=== PATIENT | male | born 1955 | race Caucasian/White ===

== ENCOUNTER 2022-03-31 11:57 | Outpatient (CLI) | payer MEDICARE, OTHER, SELFPAY ==
[2022-03-31 12:42] VITALS: BMI 25.1
--- NOTE | 2022-03-31 12:42 | ECG_ITS ---
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 Interpretive Statements NAME OF STUDY: TREADMILL STRESS TEST INDICATION: [Dyspnea on Exertion] EXERCISE DATA: The patient was exercised by Dony protocol. Baseline heart rate was 98 beats per minute. Baseline blood pressure was 100/71 millimeters of mercury. Target heart rate was 129 beats per minute. Maximum heart rate achieved was 132 which was 102% of the target heart rate. Maximum blood pressure was 167/76 millimeters of mercury. Total exercise time was 9 minutes. Maximum METs achieved was 10.2, maximum VO2 was 35.7. The reason for ending the test was completion of the protocol and symptoms of chest tightness, back and arm pain. The patient complained of chest tightness, back and arm pain during the stress test, which then resolved at the end of the test. ELECTROCARDIOGRAM: BASELINE: Showed sinus rhythm, normal axis, no significant ST-T changes at the baseline noted. [] EXERCISE: At the peak exercise level, [address] depressions were noted in leads V2- V5. RECOVERY: During the recovery period, heart rate dropped appropriately. Initially ST depressions in leads V2 through 5 were noted which resolved by the end of recovery phase. CONCLUSION: 1. Exercise capacity good 2. Heart rate response was appropriate. 3. Blood pressure response was appropriate. 4. Symptoms suggestive of ischemia. 5. Stress test is abnormal and is suggestive of ischemia with significant ST depressions noted in leads anteroseptal and anterior leads. Electronically Signed On 04-02-2022 12:30:55 CDT by Musa Davis M.D. [email or web address]
[2022-03-31 13:45] VITALS: BP 98/61; PULSE 83
== END 2022-03-31 11:58 | disposition home or self-care (01) ==
LOC: CDL 12:04
PROVIDERS: PCP Family Medicine; Visit Provider Family Medicine
DX: R06.09 Other forms of dyspnea (principal)
CPT/HCPCS: 93017

== ENCOUNTER → 2022-04-02 12:03 | Outpatient (BNVA) | payer MEDICARE, OTHER, SELFPAY | PROVIDERS: PCP Family Medicine; Visit Provider Internal Medicine | DX: I20.0 Unstable angina (principal); E11.9 Type 2 diabetes mellitus without complications; E78.5 Hyperlipidemia, unspecified; I10 Essential (primary) hypertension; Z86.73 Personal history of transient ischemic attack (TIA), and cerebral infarction without residual deficits; Z87.891 Personal history of nicotine dependence; Z79.84 Long term (current) use of oral hypoglycemic drugs; I45.10 Unspecified right bundle-branch block | CPT/HCPCS: 93005; 99204 ==

== ENCOUNTER → 2022-04-06 13:03 | Outpatient (BNVA) | payer MEDICARE, SELFPAY | PROVIDERS: PCP Family Medicine; Visit Provider Internal Medicine | DX: I10 Essential (primary) hypertension (principal); R58 Hemorrhage, not elsewhere classified; Z01.818 Encounter for other preprocedural examination | CPT/HCPCS: 80048; 85025; 85610 ==

== ENCOUNTER 2022-04-08 10:34 | Inpatient (IN) | payer MEDICARE, OTHER, SELFPAY ==
[2022-04-08] VITALS (34 sets, daily range): BP systolic 100–154; BP diastolic 60–97; PULSE 69–97; RESP 9–32; TEMP 36.1–36.8; O2SAT 95–99; BMI 25.4
--- NOTE | 2022-04-08 09:00 | XACV_ITS ---
Exam Room: 2 Ht: 180 cm Wt: 83 kg BSA: 2.04 m2 Gender: Male : 1955 Any Known Allergies: Codeine Exam Priority: Routine Procedure(s): Procedure Description: Diagnostic procedure Procedure Description: Left Heart Catheterization Procedure Description: Left ventriculography Procedure Description: Coronary Angiography Diagnostic Cath Status: Elective Diagnostic Findings * Left Anterior Descending has mild luminal irregularities. Distal vessel has a moderate to severe stenosis. LAD gives rise to a large sized diagonal artery which is free of disease.. * Left Main: Severe, 60% hazy stenosis, HARSHA: 3 flow. Distal segment of the left main artery after the stenosis and ostial left circumflex artery have a large aneurysmal segment.. * Distal Right Coronary Artery : critical 95% stenosis, HARSHA: 2 flow. PLV branch appears to be ostially occluded. Has a very large PDA that is patent. 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 * After aneurysmal segment, proximal circumflex artery has severe 90% stenosis. Medium to large sized OM branch also has ostial stenosis. * P * roximal Circumflex: severe 90% stenosis, HARSHA: 2 flow. * INDICATION: 67-year-old man with past medical history of hypertension, hyperlipidemia who was referred secondary to worsening chest pain symptoms and abnormal stress test. According to patient for the last several months she has been having worsening chest discomfort which is to the point that he has stopped doing any physical activity. He has radiation to the arms. Also has radiation to back. Had an episode last night as well. He had exercise stress test on which she had significant ST depressions in anterior septal and anterior leads. * First Obtuse Marginal Branch Segment: severe 90% stenosis, HARSHA: 2 flow. * Coronary angiography shows right dominance. Conclusions 1. Severe multivessel CAD including 2. distal left main 3. , 4. distal RCA, proximal left circumflex artery and proximal OM1 stenosis. Also has moderate to severe distal LAD stenosis.. 5. Normal left ventricular systolic function. Ejection fraction of 55%. Recommendations * Patient will be transferred to outside hospital for possible CABG as has been having unstable anginal symptoms.. * Continue aspirin and atorvastatin. Hold Plavix. * Echocardiogram ordered. * Outpatient cardiology follow-up after CABG is performed. Interventional RX Recommendation: CABG Diagnostic RX Recommendation: CABG Anticoagulation: Heparin Ventriculography Ejection Fraction: 55.0 % Pressures Phase:Rest AO : 70 / 58 ( 64 ) @ 10:54:00 AM 103 / 62 ( 79 ) @ 11:06:00 AM 103 / 54 ( 78 ) @ 11:06:00 AM LV : 112 / -7 / 10 @ 11:04:00 AM 108 / -2 / 14 @ 11:06:00 AM 111 / -3 / 12 @ 11:06:00 AM Valves Phase:DefaultPhase AV : 8.0 @ 10:14:18 AM AV Mean Gradient: 14.0 @ 10:14:18 AM 14.0 @ 10:14:18 AM Clinical Evaluation EBL: 5mL-10mL Procedural Details Procedure Consent Obtained. Pre-Procedure Time Out. Identified patient by full name and date of as verbalized by the patient/guarantor. Does the consent match the physician's order: Yes. Accurate & Complete Informed Consent: Yes. Inpatient/Outpatient History & Physical on Chart: Yes. If H&P is completed, is and addenduem needed: No. Visualize and Verify Site with Patient/Guarantor: N/A. Relevant Radiology Images available: Yes. The risks, benefits, and alternatives of sedation and/or procedure were discussed by physician. The patient agrees to continue. Procedure started. [facility] Clinical Fraility Score: 3: Managing Well. Security Operations Analyst Indications: Worsening Angina/Abnormal exercise stress test. Chest Pain Symptom Assessment: Typical Angina Symptoms. Cardiovascular Instability: No. Correct patient, site and procedure confirmed by cath team. PERRLA. 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 Lungs clear x 5 lobes. IV Site on Arrival: 20 gauge in the right forearm. IV Fluids: 0.9% NaCl at KVO. 0 mL infused prior to qc lab technician. Pre Procedural Pulses: bilateral dorsalis pedis was 2+. Pre Procedural Pulses: bilateral posterior tibial was 2+. Pre Procedural Pulses: bilateral radial was 2+. Oxygen started at 2liters/min via nasal canula. right groin was prepped with chloroprep then draped in the usual sterile fashion. right radial was prepped with chloroprep then draped in the usual sterile fashion. Physician notified. Baseline sample Acquired. HR: 88 BPM. Patient's spouse in CPRU room 3. Dr. Davis will update at the completion of the procedure. Physician arrived. Physician scrubbed in. Immediate Pre-Procedure Time Out. Correct Patient: Yes; Correct Procedure: Yes; Correct Site: Yes; Correct Patient Position: Yes; Correct Supplies: Yes; Dried Flammable Prep: Yes; Blood Products Available: N/A;. Lidocaine 1% infiltrated to the right radial. Arterial access obtained. A 5 [place] TIG catheter in over wire. Multiple views taken of left coronary artery. Catheter redirected to the RCA. Multiple views taken of right coronary artery. Dr. Davis scrubbed out to consult Dr. Encarnacion via telephone. The catheter was hooked up to KVO to maintain patency. Dr. Davis scrubbed in. Catheter removed over the standard wire. A 5 [place] Angled Pig catheter in over wire. EDP Sample taken: LV 112/-8,10; HR: 83 BPM; SpO2: 97%. LV gram performed in MANDUJANO @ 10 mL/second for a total of 30 mL. EDP Sample taken: LV 108/-3,14; HR: 86 BPM; SpO2: 97%. Pullback taken: LV 111/-4,12; AO 103/62(79); Mean: 14mmHg, Peak to Peak: 8mmHg, SEP: 9sec/min; HR: 87 BPM; SpO2: 97%. Catheter removed over the standard wire. Dr. Davis scrubbed out. TR band placed. Hemostasis obtained. Post Procedure: Pulses reassessed and unchanged. PERRLA. 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 No VTE prophylaxis required. A TR Band was successful obtaining hemostatsis at the Right Radial artery insertion site. Medication's Wasted: Nitro = 49.8 mg. Medication's Wasted: Heparin = 1000 units. Total IV fluids: 275 mL. Post-op diagnosis: Multivessel CAD/CABG consult. Complications: none. Estimated blood loss: 5mL-10mL. Responsiveness - Normal response to verbal stimuli; alert and oriented, PERRLA. Airway - Unaffected, no intervention required; spontaneous ventilation. Circulation: W/N/L, pulses unchanged. Nausea/Vomiting: No. Procedure completed. Patient transferred by wheelchair to 1st floor. Vital chart was stopped. Access Site Site: Right Radial artery Sheath Size: 6 Fr Hemostasis Method: TR Band Hemostasis Success: Successful Procedure Medications Start: 9:43 AM Stop: 9:43 AM Medication: Versed Amount: 1 mg Route: I.V. Start: 9:43 AM Stop: 9:43 AM Medication: Fentanyl Amount: 25 mcg Route: I.V. Start: 9:48 AM Stop: 9:48 AM Medication: Versed Amount: 1 mg Route: I.V. Start: 9:50 AM Stop: 9:50 AM Medication: Nitrogylcerin Amount: 200 mcg Route: I.A. Start: 9:50 AM Stop: 9:50 AM Medication: Fentanyl Amount: 25 mcg Route: I.V. Start: 9:53 AM Stop: 9:53 AM Medication: Heparin Amount: 5000 units Route: I.V. Start: 9:54 AM Stop: 9:54 AM Medication: 0.9% Saline Amount: ml Route: I.V. bolus Start: 10:02 AM Stop: 10:02 AM Medication: Fentanyl Amount: 25 mcg Route: I.V. I, the attending physician, have reviewed and verified all procedure medications. Yes, all medications given per verbal order History/Risk Factors Hypertension: Yes Dyslipidemia: Yes Peripheral Arterial Disease (PAD): No Myocardial Infarction (CA): No Obesity: No Renal Disease: No Tobacco Use: Former Prior Interventions PCI: No CABG: No Valve Surgery: No Report Signatures Finalized by Musa Davis MD on 04/15/2022 09:04 AM
--- NOTE | 2022-04-08 10:27 | W.PM.OPSUD ---
Surgery/Procedure H&P Update DATE OF PROCEDURE: April 08, 2022 DATE H&P PERFORMED: 04/02/22 H&P UPDATE INFORMATION: I have reviewed H&P completed within last 30 days, I have examined patient prior to procedure and No changes to prior documentation PREOP DIAGNOSIS: Worsening angina/ abnormal stress test PRIMARY INDICATION FOR PROCEDURE: Worsening angina/abnormal stress test PLANNED PROCEDURE: Operation Date: 04/08/22 10:00 Proposed Procedures p Left Cardiac Catheterization 56614,I20.0(Left) - Musa Davis M.D Possible percutaneous coronary intervention PATIENT REASSESSED PRIOR TO SEDATION, WITH NO CHANGE NOTED: Yes PHYSICAL EXAM: alert, oriented x 3, clear to auscultation bilaterally and regular rate & rhythm AIRWAY EVAL/ANESTHESIA PLAN: normal airway, ASA III, Local Anesthesia, Risks, benefits & alternatives of sedation and/or procedure discussed and Patient agrees to continue as planned ADDITIONAL INFORMATION: Moderate sedation
[2022-04-08] MEDS: sodium chloride 0.9% 1,000 ML 100 ML IV ×2 (10:45→19:57)
--- NOTE | 2022-04-08 12:41 | P.TS_ITS ---
Transfer Summary Providers Date of Admission: 04/08/22 10:34 Date of Discharge/Transfer: 04/09/22 Attending Provider at Admission: Musa Davis M.D Attending Provider at Transfer: Musa Davis M.D Primary Care Provider: Javier Adams Transfer Plans: Anticipated date of transfer: 04/09/22 . Receiving Facility: [facility] . Receiving Provider: Dr Rosas . Diagnoses at Discharge Discharge Diagnosis (1) Hyperlipemia: Status: Acute (2) HTN (hypertension): Status: Acute (3) Diabetes: Status: Acute (4) Worsening angina: Status: Acute (5) Coronary artery disease: Status: Acute Reason for Visit Reason for Visit I20.0 Brief History: 67-year-old man with past medical history of hypertension, stroke hyperlipidemia has been referred secondary to worsening chest pain symptoms and abnormal stress test.? According to patient for the last several months she has been having worsening chest discomfort which is to the point that he has stopped doing any physical activity.? He has radiation to the arms.? Also has radiation to back.? Had an episode last night as well.? He had exercise stress test on which she had significant ST depressions in anterior septal and anterior leads.? Hospital Course Hospital Course Patient presented to the hospital for outpatient cardiac cath. Which showed severe multivessel coronary artery disease with severe distal left main, severe ostial left circumflex stenosis, severe distal RCA stenosis. Given multivessel disease plan was to perform coronary artery bypass surgery. He has been having worsening, daily chest pains. Now happening at rest. Symptoms are consistent with unstable angina. After discussion with patient, decision made to have hospital transferred to [facility] for CABG. Of note patient did take aspirin and Plavix on 04/08/2022. LV gram shows normal LV systolic function. Echo confirms normal LV systolic function. Grade 1 diastolic dysfunction is seen. Physical Exam Narrative: GENERAL: Patient is alert, awake and oriented x3. [] NECK: No jugular vein distension. [] HEENT: No cyanosis. No icterus. No pallor. [] HEART: Regular S1 and S2. No murmur, rub or gallop. [] LUNGS: Clear to auscultate bilaterally. [] ABDOMEN: Soft, nontender and nondistended. Positive bowel sounds. No guarding, rebound or tenderness. [] CENTRAL NERVOUS SYSTEM: Grossly nonfocal. [] EXTREMITIES: Lower extremities with no edema bilaterally. Pulses palpable in the lower extremities, both dorsalis pedis and posterior tibial. [] TS Data Studies Completed and Pending Pending at discharge Category Date Time Status AEMT request for service Routine Exams 04/08/22 09:00 Taken Basic Metabolic Panel AM LABS Lab 04/09/22 04:00 Ordered Complete Blood Count w/Auto AM LABS Lab 04/09/22 04:00 Ordered Recent Clincial Data Last Vital Signs Temp 98 F 04/08/22 10:23 Pulse 87 04/08/22 10:45 Resp 19 H 04/08/22 10:45 BP 113/75 04/08/22 10:45 Pulse Ox 96 04/08/22 10:45 O2 Del Method 04/08/22 10:30 Vital Signs Temp Pulse Resp BP Pulse Ox O2 Del Method 04/08/22 10:45 87 19 H 113/75 96 04/08/22 10:30 82 117/78 97 Room Air 04/08/22 10:23 98 F 116/73 97 Room Air 04/08/22 10:17 Room Air 04/08/22 09:15 98.3 F 89 18 154/97 99 Room Air 04/08/22 09:15 Room Air Intake & Output/Weight 04/06/22 04/07/22 04/08/22 04/09/22 06:59 06:59 06:59 06:59 Weight 182 lb Vitals Last Vital Signs Temp 98 F 04/08/22 10:23 Pulse 87 04/08/22 10:45 Resp 19 H 04/08/22 10:45 BP 113/75 04/08/22 10:45 Pulse Ox 96 04/08/22 10:45 O2 Del Method 04/08/22 10:30 TS Medications Medications Acetaminophen (Acetaminophen 325 Mg Tablet) 650 mg PO Q6H PRN PRN Reason: MILD PAIN Al Hydrox/Mg Hydrox/Simethicone (Yrxi-Srf-Ayskbkamq-Mario 30 Ml Udc) 30 ml PO Q15M PRN PRN Reason: INDIGESTION Aspirin (Aspirin 81 Mg Ec Tablet) 81 mg PO DAILY BETSY Atropine Sulfate (Atropine 1 Mg/Ml Sdv 1 Ml) 0.5 mg IVP PRN PRN PRN Reason: Symptomatic bradycardia Fentanyl (Fentanyl 50 Mcg/Ml Inj 2ml) 50 mcg IVP PRN PRN PRN Reason: Prior to sheath removal Sodium Chloride (Sodium Chloride 0.9%) 1,000 mls @ 100 mls/hr IV .Q10H BETSY Magnesium Hydroxide (Magnesium Hydroxide 30 Ml Udc) 30 ml PO DAILY PRN PRN Reason: CONSTIPATION Naloxone HCl (Naloxone 0.4 Mg/Ml Sdv) 0.1 mg IVP Q2M PRN PRN Reason: RESPIRATORY RATE < 8/MIN Nitroglycerin (Nitroglycerin 0.4 Mg Sublingual Tablet) 0.4 mg SUBLINGUAL Q5M PRN PRN Reason: CHEST PAIN Temazepam (Temazepam 15 Mg Capsule) 15 mg PO BEDTIME PRN PRN Reason: INSOMNIA Discontinued Medications Fentanyl (Fentanyl 50 Mcg/Ml Inj 2ml) Confirm Administered Dose 100 mcg .ROUTE .STK-MED ONE Stop: 04/08/22 09:24 Heparin Sodium (Porcine) (Heparin 5,000 Unit/Ml Inj 1 Ml) Confirm Administered Dose 5,000 unit .ROUTE .STK-MED ONE Stop: 04/08/22 09:23 Heparin Sodium (Porcine) (Heparin 5,000 Unit/Ml Inj 1 Ml) Confirm Administered Dose 5,000 unit .ROUTE .STK-MED ONE Stop: 04/08/22 09:24 Lidocaine HCl (Lidocaine 1%) Confirm Administered Dose 2 mls @ as directed .ROUTE .STK-MED ONE Stop: 04/08/22 09:24 Sodium Chloride (Sodium Chloride 0.9%) Confirm Administered Dose 1,000 mls @ as directed .ROUTE .STK-MED ONE Stop: 04/08/22 09:25 Midazolam HCl (Midazolam 1 Mg/Ml Inj 2 Ml) Confirm Administered Dose 2 mg .ROUTE .STK-MED ONE Stop: 04/08/22 09:24 Nitroglycerin (Nitroglycerin 5 Mg/Ml Sdv 10 Ml) Confirm Administered Dose 50 mg .ROUTE .STK-MED ONE Stop: 04/08/22 09:24 Allergies codeine Allergy (Verified 04/07/22 09:35) Unknown Home Medications nitroglycerin 0.4 mg sublingual tablet 0.4 mg sublingual Q5M PRN chest pain #20 tabs 04/01/22 [Rx Confirmed 04/07/22] ascorbic acid (vitamin C) 1,000 mg tablet 1 g PO DAILY 04/02/22 [History Confirmed 04/07/22] aspirin 81 mg tablet,delayed release (Adult Low Dose Aspirin) 81 mg PO DAILY #90 tabs 04/02/22 [Rx Confirmed 04/08/22] cholecalciferol (vitamin D3) 25 mcg (1,000 unit) capsule 25 mcg PO DAILY 04/02/22 [History Confirmed 04/07/22] clobetasol 0.05 % topical cream 1 applic topical DAILY 04/02/22 [History Confirmed 04/07/22] clopidogrel 75 mg tablet (Plavix) 75 mg PO DAILY 04/02/22 [History Confirmed 04/08/22] coenzyme Q10 200 mg capsule 200 mg PO DAILY 04/02/22 [History Confirmed 04/07/22] fluticasone propionate 50 mcg/actuation nasal spray,suspension 2 spray intranasal DAILY 04/02/22 [History Confirmed 04/07/22] hydrocortisone 1 % topical cream 1 applic topical BID PRN Rash 04/02/22 [History Confirmed 04/07/22] lactobacillus combination no.9 4 billion cell capsule (Adult 50 Plus Probiotic) 4,000 mmu cells PO DAILY 04/02/22 [History Confirmed 04/07/22] lisinopril 10 mg tablet 10 mg PO DAILY 04/02/22 [History Confirmed 04/08/22] loratadine 10 mg tablet (Claritin) 10 mg PO DAILY 04/02/22 [History Confirmed 04/07/22] metformin 1,000 mg tablet 1,000 mg PO BID 04/02/22 [History Confirmed 04/08/22] pravastatin 80 mg tablet 80 mg PO DAILY 04/02/22 [History Confirmed 04/08/22] zinc gluconate 50 mg tablet 50 mg PO DAILY 04/02/22 [History Confirmed 04/07/22] Discharge Plan Discharge Patient Disposition: Xfer Other Prescriptions: Discontinued clopidogrel [Plavix] 75 mg tablet 75 mg PO DAILY No Action metformin 1,000 mg tablet 1,000 mg PO BID lisinopril 10 mg tablet 10 mg PO DAILY pravastatin 80 mg tablet 80 mg PO DAILY fluticasone propionate 50 mcg/actuation spray,suspension 2 spray intranasal DAILY Rx Instructions: administer into each nostril loratadine [Claritin] 10 mg tablet 10 mg PO DAILY zinc gluconate 50 mg tablet 50 mg PO DAILY Adult 50 Plus Probiotic 4 billion cell capsule 4,000 mmu cells PO DAILY Rx Instructions: administer with a meal ascorbic acid (vitamin C) 1,000 mg tablet 1 g PO DAILY cholecalciferol (vitamin D3) 25 mcg (1,000 unit) capsule 25 mcg PO DAILY coenzyme Q10 200 mg capsule 200 mg PO DAILY clobetasol 0.05 % cream 1 applic topical DAILY hydrocortisone 1 % cream 1 applic topical BID PRN (Reason: Rash) aspirin [Adult Low Dose Aspirin] 81 mg tablet,delayed release (DR/EC) 81 mg PO DAILY Qty: 90 3RF nitroglycerin 0.4 mg tablet, sublingual 0.4 mg sublingual Q5M PRN (Reason: chest pain) Qty: 20 3RF Rx Instructions: do not exceed 3 doses per episode Discharge Orders: Discharge Order (Routine); Ordered 04/09/22 Ordered By: Musa Davis Transfer Attestations Time Spent in Transfer Care: greater than 30 min Quality Metrics Clinical Quality Measures [ No reported AMI, CVA or VTE this stay] Coding Level of Care Code 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
--- NOTE | 2022-04-08 12:42 | USCV_ITS ---
Tobi Webb Age: 67 Gender: M : 1955 Exam Date: 04/08/2022 13:51 Ordering Phys: Musa Davis M.D ([email or web address]) Technologist: OLLIE Exam Location: [facility] [place] Indication: CHEST PAIN BP: 112 / 81 HR: 90 Rhythm: Sinus Technical Quality: Adequate MEASUREMENTS (Male / Female) Normal Values 2D ECHO LV Diastolic Diameter PLAX 4.4 cm 4.2 - 5.9 / 3.9 - 5.3 cm LV Systolic Diameter PLAX 3.0 cm IVS Diastolic Thickness 1.4 cm 0.6 - 1.0 / 0.6 - 0.9 cm IVS Systolic Thickness 1.7 cm LVPW Diastolic Thickness 1.7 cm 0.6 - 1.0 / 0.6 - 0.9 cm LVPW Systolic Thickness 1.7 cm LVOT Diameter 2.0 cm LV Ejection Fraction 2D Teich 61.2 % LV Ejection Fraction MOD 2C 65.9 % LV Ejection Fraction 2C AL 67.6 % LA Diameter 3.1 cm LA Width 3.3 cm LA Height 5.4 cm RA Width 4.0 cm RA Height 4.9 cm Aorta at Sinotubular Diameter 2.9 cm IVC Diameter 1.2 cm M-MODE Aortic Annulus Diameter 3.5 cm LA Ao Ratio MM 0.8 MV E Point Septal Separation 0.4 cm DOPPLER AV Peak Velocity 155.7 cm/s LVOT Peak Velocity 80.0 cm/s AV Area Cont Eq vti 1.9 cm squared AV Area Cont Eq pk 1.6 cm squared MV Peak Velocity 95.0 cm/s MV Area PHT 3.7 cm squared Mitral E to A Ratio 0.7 MV E' Velocity 36.0 cm/s Mitral E to MV E' Ratio 5.6 Mitral E to LV E' Lateral Ratio 4.4 Mitral E to LV E' Septal Ratio 7.7 TR Peak Velocity 146.3 cm/s TR Peak Gradient 8.6 mmHg TR Mean Velocity 111.6 cm/s TR Mean Gradient 5.6 mmHg TR Velocity Time Integral 36.3 cm TV Peak E Velocity 43.0 cm/s Right Atrial Pressure 3.0 mmHg Pulmonary Artery Systolic Pressu 11.6 mmHg FINDINGS Left Ventricle Left ventricle is normal in size. LV systolic function is normal with a EF of 55 to 60%. No regional wall motion abnormalities are seen. Grade 1 diastolic dysfunction is noted. Right Ventricle Normal in size and function Right Atrium Normal in size Left Atrium Normal in size Mitral Valve Structurally normal mitral valve. Mild mitral regurgitation is seen Aortic Valve Grossly normal. No significant stenosis or regurgitation Tricuspid Valve Mild tricuspid regurgitation. Insufficient TR jet to calculate RVSP. Pulmonic Valve Not well-visualized Pericardium Normal Aorta Normal in size IVC CONCLUSIONS LV systolic function is normal with EF of 55 to 60%. Grade 1 diastolic dysfunction is noted. Mild mitral regurgitation is seen. Mild tricuspid regurgitation noted. Musa Davis MD (Electronically Signed) Final Date: 09 April 2022 13:18 S
[2022-04-08 16:30] LABS: SARS Covid-2 Antigen Negative (Negative)
--- NOTE | 2022-04-08 18:38 | PC.NURSE ---
Patient arrived via wheelchair with at bedside. Patient and oriented to room. VS stable. Patient educated regarding activity restriction.
[2022-04-09] VITALS (8 sets, daily range): BP systolic 108–136; BP diastolic 68–82; PULSE 77–96; RESP 15–19; TEMP 36.6–36.7; O2SAT 92–97
[2022-04-09 03:11] LABS: Basophils # 0.1 10^3/uL (0.0-0.1); Basophils % 1.3 %; Eosinophils # 0.3 10^3/uL (0.0-0.8); Eosinophils % 5.2 %; Hematocrit 41.1 % (42.0-52.0); Hemoglobin 13.5 g/dL (11.7-16.6); Lymphocytes # 2.1 10^3/uL (0.8-4.8); Lymphocytes % 37.9 %; Mean Corpuscular HGB Conc 32.8 g/dL (30.0-36.0); Mean Corpuscular Hemoglobin 31.6 pg (28.0-34.0); Mean Corpuscular Volume 96.3 fl (80-94); Mean Platelet Volume 9.3 fL (7.4-10.4); Monocytes # 0.6 10^3/uL (0.2-0.9); Neutrophils # 2.54 10^3/uL (1.8-7.7); Neutrophils % 45.4 %; Nucleated Red Blood Cells % 0 %; Platelet Count 290 10^3/cmm (130-400); Red Blood Count 4.27 10^6/uL (4.1-5.3); Red Cell Distribution Width 12.2 % (12.1-15.1); White Blood Count 5.6 10^3/uL (4.0-10.0)
[2022-04-09 03:48] LABS: Anion Gap 10.6 (5-19); Blood Urea Nitrogen 14 mg/dL (8-23); Carbon Dioxide 29 mmol/L (22-29); Chloride 106 mmol/L (98-107); Glomerular Filtration Rate 96.1 mL/min (90-130); Glucose 128 mg/dL (65-115); Osmolality Calculated 294 mOsm/kg (285-295); Potassium 4.6 mmol/L (3.5-5.1); Sodium 141 mmol/L (136-145)
[2022-04-09] MEDS: sodium chloride 0.9% 1,000 ML 100 ML IV (05:02)
[2022-04-09] MEDS: aspirin 81 mg EC Tablet PO (08:51)
--- NOTE | 2022-04-09 09:32 | PC.NURSE ---
patient reports excessive belching with pressure in upper abdomen lower chest and left back patient states its one for the episodes that i have been having that brought me to the doctor provider notified instructions to give nitro if blood pressure tolerates continue protocol until pain is relieved if dose not help contact for further instructions. upon entering room with nitro and explaining providers plans patient denies the need for nitro. patient denies any intervention at this time Stating its all ready starting to feel better i just need to belch a for a few more mins i will be fine if it get worse or i need you i will call V/s stable bp 119/85 HR 99-100 NSR
--- NOTE | 2022-04-09 10:38 | PC.CHAP ---
Pastoral Care Encounter/Spiritual Assessment Type of Contact [] Declined shingle carrier visit [] Patient/Family/Request visit [] Outpatient visit [] Follow-up visit [] Physician referral [] Code/Alert [x] Routine visit [] Staff referral [] Actively dying [] Patient sleeping [] Family support [] [] Out of room [] Palliative care [] [x] Receiving care in room [] Pre-surgical visit [] Trauma [] Long length of stay [] ICU visit [] Other: Relational/Emotional Strength [x] Patient feels connected with others/family/visitors/staff [] Distress [] Loneliness/isolation [] Abandonment Spirituality of Patient [x] Person of Shayy [] Attends Yazidi of their Shayy [x] Believes in Prayer [] Reads Bible or Congregation materials [] There are Spiritual issues to be addressed Rn Diabetes Interventions [x] Prayer [x] Active listening [x] Non-anxious presence [x] Spiritual/emotional support [] Crisis/trauma care [x] Spiritual counseling [] Bereavement support [] Provided bereavement packet [] Provided Bible/devotional materials [] Provided toy/stuffed animal, coloring book to patient or family member [] Provided Communion [] Anointing/[place] [] Salvation [x] Completed spiritual assessment [] Other: Impact on Illness or Injury [] Angry [] Fearful [x] Anxious [] Often cries [] Exhaustion [] Unable to work [] Unable to attend islam [] Unable to walk/stand [] Unable to read [] Unable to drive [] Unable to eat/drink [] Unable to sleep [] Unable to be with family [] Patient intubated [] Other: Summary he is waiting surgery at [facility] has agood attitude he will need some recovery after surgery Time spent with patient 10 mins
--- NOTE | 2022-04-09 13:36 | P.PN_ITS ---
Subjective Subjective: Patient is doing well. Denies any chest pain. Had some heartburn earlier this morning. Resolved for now. Awaiting bed placement at [place]. Vitals/I&O/Wt Last Vital Signs Temp 98.1 F 04/09/22 10:59 Pulse 84 04/09/22 10:59 Resp 16 04/09/22 10:59 BP 136/80 04/09/22 10:59 Pulse Ox 95 04/09/22 10:59 O2 Del Method 04/09/22 10:59 04/08/22 04/09/22 04/09/22 22:59 06:59 14:59 Intake Total 1280 / 1280 908.333 / 2188.333 360 / 360 Balance 1280 / 1280 908.333 / 2188.333 360 / 360 Weight last 48 hrs Weight 182 lb Physical Exam Narrative: GENERAL: Patient is alert, awake and oriented x3. [] NECK: No jugular vein distension. [] HEENT: No cyanosis. No icterus. No pallor. [] HEART: Regular S1 and S2. No murmur, rub or gallop. [] LUNGS: Clear to auscultate bilaterally. [] ABDOMEN: Soft, nontender and nondistended. Positive bowel sounds. No guarding, rebound or tenderness. [] CENTRAL NERVOUS SYSTEM: Grossly nonfocal. [] EXTREMITIES: Lower extremities with no edema bilaterally. Pulses palpable in the lower extremities, both dorsalis pedis and posterior tibial. [] Data : 04/09/22 02:59 04/09/22 02:59 A&P Assessment and plan (1) Hyperlipemia: Status: Acute (2) HTN (hypertension): Status: Acute (3) Diabetes: Status: Acute (4) Worsening angina: Status: Acute Plan Patient is awaiting transfer to [facility] for CABG pending bed availability. Was found to have severe multivessel coronary artery disease including distal left main, RCA and circumflex artery stenosis. Continue aspirin. We are holding Plavix. Continue Coreg and atorvastatin. Nitro as needed. Echocardiogram shows normal LV systolic function. Telemetry monitoring. Attestations Medical Necessity Statement*: Care expected to cross 2 midnights. Patient presented for outpatient cardiac cath however symptoms are concerning for uns table angina. Has multivessel disease. Is awaiting transfer to [facility] for CABG. 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
--- NOTE | 2022-04-09 14:04 | PC.NURSE ---
spoke with provider with patient concerns of having small hard bowels wanting something to help with that instructions to give mirlax daily
[2022-04-09] MEDS: polyethylene glycol 3350 Pkt 17 gm PO (14:36)
[2022-04-09] MEDS: carvedilol 3.125 mg Tablet PO (18:26)
--- NOTE | 2022-04-09 19:24 | PC.NURSE ---
report called to [facility] patient prepared for transfer
--- NOTE | 2022-04-09 19:59 | PC.NURSE ---
EMS [facility] present to transfer patient to [facility] for higher level of care. Patient given explanation of transfer cost, Alert and oriented, no distress noted, ambulates without difficulty. All personal items taken with patient.
== END 2022-04-09 19:59 | disposition short-term general hospital (02) | DRG 287 ==
LOC: CCL 10:54 → CSU 10:54 → MEDSURG 18:13
PROVIDERS: Admitting Provider Internal Medicine; PCP Family Medicine; Visit Provider Internal Medicine
PROC: B2111ZZ Fluoroscopy of Multiple Coronary Arteries using Low Osmolar Contrast (ICD-10-PCS; principal; 2022-04-08 10:00)
DX: I25.110 Atherosclerotic heart disease of native coronary artery with unstable angina pectoris (principal); E78.5 Hyperlipidemia, unspecified; I10 Essential (primary) hypertension; E11.9 Type 2 diabetes mellitus without complications; Z79.82 Long term (current) use of aspirin; Z79.02 Long term (current) use of antithrombotics/antiplatelets; Z79.84 Long term (current) use of oral hypoglycemic drugs; Z86.73 Personal history of transient ischemic attack (TIA), and cerebral infarction without residual deficits; Z87.891 Personal history of nicotine dependence
CPT/HCPCS: 36415; 80048; 85025; 85610; 87426; 93306; 93452; 93458; 96360; 99152; 99153; C1769; C1887; C1894; G0378; J1644; J2250; J3010; J3490; J7030; Q9967

== ENCOUNTER → 2022-05-20 14:41 | Outpatient (BNVA) | payer MEDICARE, OTHER, SELFPAY | PROVIDERS: PCP Family Medicine; Visit Provider Internal Medicine | DX: I25.10 Atherosclerotic heart disease of native coronary artery without angina pectoris (principal); Z86.73 Personal history of transient ischemic attack (TIA), and cerebral infarction without residual deficits; E78.5 Hyperlipidemia, unspecified; I10 Essential (primary) hypertension; E11.9 Type 2 diabetes mellitus without complications; Z79.84 Long term (current) use of oral hypoglycemic drugs; Z87.891 Personal history of nicotine dependence; Z95.1 Presence of aortocoronary bypass graft | CPT/HCPCS: 99214 ==

== ENCOUNTER 2022-10-23 12:46 | Outpatient (CLI) | payer MEDICARE, OTHER, SELFPAY ==
--- NOTE | 2022-10-23 13:00 | USCV_ITS ---
Tobi Webb Age: 67 Gender: M : 1955 Exam Date: 10/23/2022 13:38 Ordering Phys: Musa Davis M.D ([email or web address]) Technologist: OLLIE Exam Location: [facility] Indication: CHEST PAIN, SHORTNESS OF BREATH BP: 152 / 80 HR: 79 Rhythm: Sinus Technical Quality: Adequate MEASUREMENTS (Male / Female) Normal Values 2D ECHO LVOT Diameter 2.0 cm LV Ejection Fraction MOD 2C 49.1 % LV Ejection Fraction 2C AL 49.4 % LA Diameter 3.0 cm LA Width 3.4 cm LA Height 5.2 cm RA Width 3.5 cm RA Height 4.9 cm Aorta at Sinotubular Diameter 2.5 cm IVC Diameter 1.7 cm M-MODE Aortic Annulus Diameter 3.1 cm LA Ao Ratio MM 0.8 MV E Point Septal Separation 0.6 cm DOPPLER AV Peak Velocity 131.3 cm/s LVOT Peak Velocity 79.0 cm/s AV Area Cont Eq vti 1.8 cm squared AV Area Cont Eq pk 1.9 cm squared MV Peak Velocity 78.0 cm/s MV Area PHT 3.7 cm squared Mitral E to A Ratio 0.6 MV E' Velocity 30.0 cm/s Mitral E to MV E' Ratio 5.6 Mitral E to LV E' Lateral Ratio 4.8 Mitral E to LV E' Septal Ratio 6.7 TR Peak Velocity 161.6 cm/s TR Peak Gradient 10.4 mmHg TR Mean Velocity 119.1 cm/s TR Mean Gradient 6.1 mmHg TR Velocity Time Integral 38.2 cm TV Peak E Velocity 49.0 cm/s Right Atrial Pressure 3.0 mmHg Pulmonary Artery Systolic Pressu 13.4 mmHg PV Peak Velocity 90.0 cm/s RV Acceleration Time 0.1 s RV Ejection Time 0.3 s RV AcT/ET 0.5 FINDINGS Left Ventricle Left ventricle is normal in size. LV systolic function is normal with EF of 50 to 55%. No regional wall motion abnormalities are seen. Grade 1 diastolic dysfunction. Right Ventricle Normal in size and function Right Atrium Normal in size. Interatrial septum is aneurysmal. Left Atrium Normal in size Mitral Valve Structurally normal mitral valve. Trace mitral regurgitation. Aortic Valve Aortic valve is thickened. No significant stenosis or regurgitation. Tricuspid Valve Mild tricuspid regurgitation. Pulmonary artery systolic pressure is normal. Pulmonic Valve Not well-visualized. Trace pulmonic regurgitation. Pericardium Normal Aorta Normal in size IVC Appears to be normal CONCLUSIONS LV systolic function is normal with EF of 50 to 55% Grade 1 diastolic dysfunction Interatrial septum is aneurysmal Trace mitral regurgitation Mild tricuspid regurgitation Trace pulmonic regurgitation Compared to prior echocardiogram from 2021, no significant changes are seen Musa Davis MD (Electronically Signed) Final Date: 31 October 2022 19:49 S
== END 2022-10-23 12:47 | disposition home or self-care (01) ==
LOC: RAD 12:49
PROVIDERS: PCP Family Medicine; Visit Provider Internal Medicine
DX: R06.02 Shortness of breath (principal); R07.9 Chest pain, unspecified; I08.1 Rheumatic disorders of both mitral and tricuspid valves
CPT/HCPCS: 93306

== ENCOUNTER → 2022-11-19 15:06 | Outpatient (BNVA) | payer MEDICARE, OTHER, SELFPAY | PROVIDERS: PCP Family Medicine; Visit Provider Internal Medicine | DX: I25.10 Atherosclerotic heart disease of native coronary artery without angina pectoris (principal); E78.5 Hyperlipidemia, unspecified; I10 Essential (primary) hypertension; E11.9 Type 2 diabetes mellitus without complications; Z79.84 Long term (current) use of oral hypoglycemic drugs; Z86.73 Personal history of transient ischemic attack (TIA), and cerebral infarction without residual deficits; Z87.891 Personal history of nicotine dependence; Z79.82 Long term (current) use of aspirin | CPT/HCPCS: 99213 ==

== ENCOUNTER → 2023-03-15 10:41 | Outpatient (BNVA) | payer MEDICARE, OTHER, SELFPAY | PROVIDERS: PCP Family Medicine; Referring Provider Family Medicine; Visit Provider Anesthesiology Pain Medicine | DX: M51.16 Intervertebral disc disorders with radiculopathy, lumbar region (principal); M47.816 Spondylosis without myelopathy or radiculopathy, lumbar region; M79.605 Pain in left leg | CPT/HCPCS: 99204 ==

== ENCOUNTER → 2023-03-30 13:50 | Outpatient (BNVA) | payer MEDICARE, OTHER, SELFPAY | PROVIDERS: PCP Family Medicine; Visit Provider Anesthesiology Pain Medicine | DX: M54.16 Radiculopathy, lumbar region (principal) | CPT/HCPCS: 64483; 64484; J1100; J3490 ==

== ENCOUNTER → 2023-04-13 13:00 | Outpatient (BNVA) | payer MEDICARE, OTHER, SELFPAY | PROVIDERS: PCP Family Medicine; Visit Provider Anesthesiology Pain Medicine | DX: M54.16 Radiculopathy, lumbar region (principal) | CPT/HCPCS: 64483; 64484; J1100; J3490 ==

== ENCOUNTER → 2023-04-26 10:18 | Outpatient (BNVA) | payer MEDICARE, OTHER, SELFPAY | PROVIDERS: PCP Family Medicine; Visit Provider Anesthesiology Pain Medicine | DX: M51.16 Intervertebral disc disorders with radiculopathy, lumbar region; M47.816 Spondylosis without myelopathy or radiculopathy, lumbar region | CPT/HCPCS: 99214 ==

== ENCOUNTER → 2023-05-27 10:00 | Outpatient (BNVA) | payer MEDICARE, OTHER, SELFPAY | PROVIDERS: PCP Family Medicine; Visit Provider Anesthesiology Pain Medicine | DX: M51.16 Intervertebral disc disorders with radiculopathy, lumbar region; M47.816 Spondylosis without myelopathy or radiculopathy, lumbar region | CPT/HCPCS: 99213 ==

== ENCOUNTER → 2023-06-07 15:16 | Outpatient (BNVA) | payer MEDICARE, OTHER, SELFPAY | PROVIDERS: PCP Family Medicine; Visit Provider Internal Medicine | DX: I25.10 Atherosclerotic heart disease of native coronary artery without angina pectoris (principal); E78.5 Hyperlipidemia, unspecified; I10 Essential (primary) hypertension; E11.9 Type 2 diabetes mellitus without complications; Z79.84 Long term (current) use of oral hypoglycemic drugs; Z78.9 Other specified health status; Z86.73 Personal history of transient ischemic attack (TIA), and cerebral infarction without residual deficits; Z87.891 Personal history of nicotine dependence | CPT/HCPCS: 99214 ==

== ENCOUNTER → 2023-08-16 10:51 | Outpatient (BNVA) | payer MEDICARE, OTHER, SELFPAY | PROVIDERS: PCP Family Medicine; Visit Provider Nurse Practitioner Family | DX: E78.5 Hyperlipidemia, unspecified (principal) | CPT/HCPCS: 99213 ==

== ENCOUNTER → 2023-12-09 10:16 | Outpatient (BNVA) | payer MEDICARE, OTHER, SELFPAY | PROVIDERS: PCP Family Medicine; Visit Provider Anesthesiology Pain Medicine | DX: M51.16 Intervertebral disc disorders with radiculopathy, lumbar region; M47.816 Spondylosis without myelopathy or radiculopathy, lumbar region | CPT/HCPCS: 99214 ==

== ENCOUNTER → 2023-12-10 11:16 | Outpatient (BNVA) | payer MEDICARE, OTHER, SELFPAY | PROVIDERS: PCP Family Medicine; Visit Provider Internal Medicine | DX: I25.10 Atherosclerotic heart disease of native coronary artery without angina pectoris (principal); E78.5 Hyperlipidemia, unspecified; I10 Essential (primary) hypertension; E11.9 Type 2 diabetes mellitus without complications; Z78.9 Other specified health status; Z86.73 Personal history of transient ischemic attack (TIA), and cerebral infarction without residual deficits; Z87.891 Personal history of nicotine dependence; Z79.84 Long term (current) use of oral hypoglycemic drugs | CPT/HCPCS: 99214 ==

== ENCOUNTER → 2024-04-27 15:20 | Outpatient (BNVA) | payer MEDICARE, SELFPAY | PROVIDERS: PCP Family Medicine; Visit Provider Internal Medicine | DX: R07.9 Chest pain, unspecified (principal); R06.02 Shortness of breath; I25.10 Atherosclerotic heart disease of native coronary artery without angina pectoris; E78.5 Hyperlipidemia, unspecified; I10 Essential (primary) hypertension; E11.9 Type 2 diabetes mellitus without complications; Z78.9 Other specified health status; Z86.73 Personal history of transient ischemic attack (TIA), and cerebral infarction without residual deficits | CPT/HCPCS: 99214 ==

== ENCOUNTER 2024-05-07 19:39 | Emergency (ER) | payer MEDICARE, SELFPAY ==
--- NOTE | 2024-05-07 19:46 | ECG_ITS ---
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 Measurements Intervals [place] Rate: 77 P: 39 FL: 167 QRS: 7 QRSD: 99 T: 32 QT: 361 QTc: 409 Interpretive Statements SINUS RHYTHM LOW QRS VOLTAGE IN PRECORDIAL LEADS [QRS DEFLECTION < 1.0 mV IN CHEST LEADS] POSSIBLE RIGHT VENTRICULAR CONDUCTION DELAY [RSR (QR) IN V1/V2] No previous ECG available for comparison Electronically Signed On 05-08-2024 11:17:19 CDT by Musa Davis M.D. [email or web address] centerChina [facility]aceutical[facility]etro[facility].[employer]/store/Ov/[id number]
[2024-05-07 19:49] VITALS: BP 153/81; PULSE 78; RESP 16; O2SAT 97; BMI 25.7
--- NOTE | 2024-05-07 20:05 | XRR_ITS ---
PROCEDURE INFORMATION: Exam: XR Chest Exam date and time: 05/07/2024 8:12 PM Age: 69 years old Clinical indication: Chest pressure; Prior surgery; Surgery date: 6+ months; Surgery type: Cabg; Patient HX: C/O chest pain TECHNIQUE: Imaging protocol: Radiologic exam of the chest. Views: 1 view. COMPARISON: No relevant prior studies available. FINDINGS: Lungs: Low lung volumes with bibasilar hypoventilatory changes, [id number]-hahhonk-cgbi-right. No consolidative airspace disease. Right basilar calcified granuloma. Pleural spaces: Unremarkable. No pleural effusion. No pneumothorax. Heart/Mediastinum: Unremarkable. No cardiomegaly. Vasculature: Tortuous thoracic aorta with atherosclerotic calcifications. Bones/joints: Post median sternotomy and CABG. XR/XR chest 1V portable [id number] IMPRESSION: No acute cardiopulmonary findings.
[2024-05-07 20:23] VITALS: BP 107/66; PULSE 104; RESP 16; O2SAT 94
[2024-05-07 20:26] LABS: Basophils # 0.1 10^3/uL (0.0-0.1); Basophils % 1.7 %; Eosinophils # 0.5 10^3/uL (0.0-0.8); Eosinophils % 8.1 %; Hematocrit 47.1 % (37-53); Lymphocytes # 2.2 10^3/uL (0.8-4.8); Lymphocytes % 33.7 %; Mean Corpuscular HGB Conc 32.7 g/dL (30-55); Mean Corpuscular Hemoglobin 30.6 pg (27-33); Mean Corpuscular Volume 93.6 fl (82-101); Mean Platelet Volume 9.3 fL (7.4-10.4); Monocytes # 0.6 10^3/uL (0.2-0.9); Monocytes % 9.6 %; Neutrophils # 2.99 10^3/uL (1.8-7.7); Neutrophils % 46.4 %; Nucleated Red Blood Cells % 0 %; Platelet Count 317 10^3/cmm (157-399); Red Blood Count 5.03 10^6/uL (3.85-5.65); Red Cell Distribution Width 12.6 % (12.1-15.1); White Blood Count 6.44 10^3/uL (3.29-11.43)
--- NOTE | 2024-05-07 20:26 | W.ED.CHESTPA ---
HPI - Chest Pain General: Chief Complaint: Chest Pain Stated Complaint: cp radiating up nitro. Time Seen by Provider: 05/07/24 20:05 History of Present Illness: 69-year-old man with a history of coronary artery disease status post CABG and on Plavix, diabetes, hypertension, stroke and hyperlipidemia who presents to the emergency room with central chest pain. He says he was lifting some 15 pound blocks out of his truck in the trash can. When he did this he had a sharp pain in the sternal area that radiated all the way up his chest and into his neck. He took a nitroglycerin which did not help. He now has some tenderness to palpation in the chest wall in his sternal area. 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 Otherwise he is been fine. No shortness of breath. No nausea or vomiting. No abdominal pain. No diaphoresis. No altered mental status. No focal motor deficits. Related Data Home Medications Medication Instructions Recorded Confirmed clobetasol 0.05 % topical cream 1 applic topical DAILY 04/02/22 04/27/24 clopidogrel 75 mg tablet (Plavix) 75 mg PO DAILY 04/02/22 04/27/24 fluticasone propionate 50 2 spray intranasal DAILY 04/02/22 04/27/24 mcg/actuation nasal spray,suspension loratadine 10 mg tablet (Claritin) 10 mg PO DAILY 04/02/22 04/27/24 metformin 1,000 mg tablet 1,000 mg PO BID 04/02/22 04/27/24 acetaminophen 500 mg capsule 500 mg PO Q6H PRN 05/20/22 04/27/24 tamsulosin 0.4 mg capsule (Flomax) 0.4 mg PO DAILY 05/20/22 04/27/24 albuterol 90 mcg/actuation aerosol mcg inhalation 11/19/22 04/27/24 inhaler gabapentin 100 mg capsule 200 mg PO BEDTIME 11/19/22 04/27/24 Previous Rx's Medication Instructions Recorded aspirin 81 mg tablet,delayed 81 mg PO DAILY #90 tabs 04/02/22 release (Adult Low Dose Aspirin) metoprolol tartrate 25 mg tablet 37.5 mg (1.5 x 25 mg) PO BID #135 07/01/22 tabs topiramate 50 mg tablet See Rx Instructions .Route 11/18/23 .COMPLEX #60 tabs evolocumab 140 mg/mL subcutaneous See Rx Instructions .Route 01/21/24 pen injector (Itzel Stringer) .COMPLEX #2 mL nitroglycerin 0.4 mg sublingual 0.4 mg sublingual Q5M PRN chest 04/27/24 tablet pain #30 tabs Allergies Allergy/AdvReac Type Severity Reaction Status Date / Time bacitracin Allergy Unknown Unknown Verified 12/10/23 11:28 [From Neosporin Plus] lidocaine Allergy Unknown Unknown Verified 12/10/23 11:28 [From Neosporin Plus] neomycin Allergy Unknown Unknown Verified 12/10/23 11:28 [From Neosporin Plus] polymyxin B Allergy Unknown Unknown Verified 12/10/23 11:28 [From Neosporin Plus] pramoxine Allergy Unknown Unknown Verified 12/10/23 11:28 [From Neosporin Plus] codeine Allergy Unknown Verified 12/10/23 11:28 atorvastatin AdvReac Severe ADR-Muscle Uncoded 12/10/23 11:28 Pain pravastatin AdvReac Severe ADR-Muscle Uncoded 12/10/23 11:28 Pain Review of Systems Narrative: Constitutional symptoms: Negative except as documented in HPI. Skin symptoms: Negative except as documented in HPI. Eye symptoms: Negative except as documented in HPI. ENMT symptoms: Negative except as documented in HPI. Respiratory symptoms: Negative except as documented in HPI. Cardiovascular symptoms: Negative except as documented in HPI. Gastrointestinal symptoms: Negative except as documented in HPI. Genitourinary symptoms: Negative except as documented in HPI. Musculoskeletal symptoms: Negative except as documented in HPI. Neurologic symptoms: Negative except as documented in HPI. Psychiatric symptoms: Negative except as documented in HPI. Endocrine symptoms: Negative except as documented in HPI. PFSH ED PFSH: Medical History Diabetes HTN (hypertension) Hiatal hernia Stroke Hyperlipemia Family History Father Heart attack Social History Smoking and tobacco/nicotine status: former use of tobacco/nicotine Physical Exam Narrative: EXAM NARRATIVE: General: Alert, no acute distress. Skin: Warm, dry. Head: Normocephalic, atraumatic. Neck: Supple, trachea midline. Eye: Extraocular movements are intact. Ears, nose, mouth and throat: mucosa moist. Cardiovascular: Regular, Normal peripheral perfusion. Some tenderness to palpation/reproducible pain in the central sternal area Respiratory: Lungs are clear to auscultation, respirations are non-labored, breath sounds are equal, Symmetrical chest wall expansion. Gastrointestinal: Soft, Nontender, Non distended Musculoskeletal: Normal ROM, no deformity. Neurological: Alert and oriented, No focal neurological deficit observed. Psychiatric: Cooperative, appropriate mood & affect. Course Vital Signs: Vital signs: Vital Signs Pulse Rate 99 05/07/24 21:51 Respiratory Rate 18 05/07/24 21:23 Blood Pressure 101/62 05/07/24 21:51 Pulse Oximetry 99 05/07/24 21:51 Oxygen Delivery Me thod Room Air 05/07/24 19:49 MDM - Chest Pain Medical Decision Making Differential diagnosis for patient with chest pain includes but is not limited to and based on the above HPI, review of systems and physical exam: Pneumonia. unstable angina. angina. Acute coronary syndrome / IA. Pulmonary embolism. Costochondritis / musculoskeletal. Pleurisy. Pericarditis. Esophageal spasm. Pancreatis. Cholecystitis. Orders placed to evaluate differential diagnosis based on the above differential, HPI and physical exam EKG: Time 1945. Rate 77. Normal sinus rhythm, No ST-T changes, no ectopy, normal [place] & QRS intervals, This was reviewed and interpreted by myself the ER physician at 1945. No change from previous EKGs. Chest x-ray: Sternotomy wires in place. No acute process. No infiltrate. No pneumothorax. This was reviewed and interpreted by myself the ER physician. Lab Review: Laboratory results were reviewed and interpreted by myself the emergency room physician. I reviewed the patient's medical record. Reexamination: Lab Data 05/07/24 20:20 05/07/24 20:20 Radiology Impressions Chest X-Ray 05/07/24 20:05 IMPRESSION: No acute cardiopulmonary findings. Laboratory Results WBC 6.44 10^3/uL (3.29-11.43) 05/07/24 20:20 RBC 5.03 10^6/uL (3.85-5.65) 05/07/24 20:20 Hgb 15.40 g/dL (11.27-16.99) 05/07/24 20:20 Hct 47.1 % (37-53) 05/07/24 20:20 MCV 93.6 fl (82-101) 05/07/24 20:20 MCH 30.6 pg (27-33) 05/07/24 20:20 MCHC 32.7 g/dL (30-55) 05/07/24 20:20 RDW 12.6 % (12.1-15.1) 05/07/24 20:20 Plt Count 317 10^3/cmm (157-399) 05/07/24 20:20 MPV 9.3 fL (7.4-10.4) 05/07/24 20:20 Neut % (Auto) 46.4 % 05/07/24 20:20 Lymph % (Auto) 33.7 % 05/07/24 20:20 [place] % (Auto) 9.6 % 05/07/24 20:20 Eos % (Auto) 8.1 % 05/07/24 20:20 Baso % (Auto) 1.7 % 05/07/24 20:20 Neut # (Auto) 2.99 10^3/uL (1.8-7.7) 05/07/24 20:20 Lymph # (Auto) 2.2 10^3/uL (0.8-4.8) 05/07/24 20:20 [place] # (Auto) 0.6 10^3/uL (0.2-0.9) 05/07/24 20:20 Eos # (Auto) 0.5 10^3/uL (0.0-0.8) 05/07/24 20:20 Baso # (Auto) 0.1 10^3/uL (0.0-0.1) 05/07/24 20:20 Nucleated RBC % (auto) 0 % 05/07/24 20:20 Nucleated RBCs # 0.0 /100WBC 05/07/24 20:20 Sodium 142 mmol/L (136-145) 05/07/24 20:20 Potassium 4.2 mmol/L (3.5-5.1) 05/07/24 20:20 Chloride 107 mmol/L (98-107) 05/07/24 20:20 Carbon Dioxide 27 mmol/L (22-29) 05/07/24 20:20 Anion Gap 12.2 (5-19) 05/07/24 20:20 BUN 21 mg/dL (8-23) 05/07/24 20:20 Creatinine 1.0 mg/dL (0.7-1.2) 05/07/24 20:20 GFR Calculation 73.9 mL/min (90-130) L 05/07/24 20:20 Glucose 169 mg/dL (65-115) H 05/07/24 20:20 Calculated Osmolality 301 mOsm/kg (285-295) H 05/07/24 20:20 Calcium 9.3 mg/dL (8.5-10.5) 05/07/24 20:20 Troponin T Baseline 18 ng/L (0-15) H 05/07/24 20:20 Troponin T 120 Minute 11.73 ng/L (0-15) 05/07/24 21:05 Delta Troponin T -6.27 ABS# (0-10) L 05/07/24 21:05 All radiology interpretation(s) finalized by discharge Discharge Plan Discharge Patient Disposition: Home Clinical Impression: Chest pain, musculoskeletal Condition: Stable Prescriptions: No Action acetaminophen 500 mg capsule 500 mg PO Q6H PRN tamsulosin [Flomax] 0.4 mg capsule 0.4 mg PO DAILY nitroglycerin 0.4 mg tablet, sublingual 0.4 mg sublingual Q5M PRN (Reason: chest pain) Qty: 30 3RF Rx Instructions: do not exceed 3 doses per episode metformin 1,000 mg tablet 1,000 mg PO BID clopidogrel [Plavix] 75 mg tablet 75 mg PO DAILY fluticasone propionate 50 mcg/actuation spray,suspension 2 spray intranasal DAILY Rx Instructions: administer into each nostril loratadine [Claritin] 10 mg tablet 10 mg PO DAILY clobetasol 0.05 % cream 1 applic topical DAILY aspirin [Adult Low Dose Aspirin] 81 mg tablet,delayed release (DR/EC) 81 mg PO DAILY Qty: 90 3RF gabapentin 100 mg capsule 200 mg PO BEDTIME albuterol 90 mcg/actuation aerosol inhalation metoprolol tartrate 25 mg tablet 37.5 mg PO BID Qty: 135 3RF topiramate 50 mg tablet See Rx Instructions .ROUTE .COMPLEX Qty: 60 5RF Dose Instruction: TAKE 1 TABLET BY MOUTH TWICE DAILY NEEDED FOR PAIN Rx Instructions: TAKE 1 TABLET BY MOUTH TWICE DAILY NEEDED FOR PAIN Repatha SureClick 140 mg/mL pen injector See Rx Instructions .ROUTE .COMPLEX Qty: 2 5RF Dose Instruction: Inject 140mg subcutaneously EVERY TWO WEEKS Rx Instructions: Inject 140mg subcutaneously EVERY TWO WEEKS Discharge Orders: Discharge ED (Routine); Ordered 05/07/24 Ordered By: Roseline Louise Referrals: Javier Adams [Primary Care Provider] - Discharge Diet: Usual diet Discharge Activity: Resume usual activity Patient Instructions: Chest Wall Pain (ED) Activity Restrictions/Additional Instructions: Thank you for choosing [facility] for your healthcare needs today. Please realize this is an emergency room and that we are providing you with a medical screening exam and this may not be complete and all inclusive of all the testing and or work up that you may need to determine your ailment or severity of your illness. You have been screened and evaluated and felt safe for discharge. Health conditions do change or evolve sometimes and as such it is important that you follow up with your Primary Doctor to be re checked, 3-5 days is a general good time frame for follow up. You are always welcome to return to the ED for re assessment if your symptoms are worsening or you have new concerns Coding Level of Care Code ED In Home Baby Sitter for Willie Ordonez
[2024-05-07 20:47] LABS: Troponin(5th) Baseline 18 ng/L (0-15)
[2024-05-07 20:48] LABS: Anion Gap 12.2 (5-19); Blood Urea Nitrogen 21 mg/dL (8-23); Calcium 9.3 mg/dL (8.5-10.5); Carbon Dioxide 27 mmol/L (22-29); Chloride 107 mmol/L (98-107); Creatinine Clr Calc Pharmacy 76.5586; Glomerular Filtration Rate 73.9 mL/min (90-130); Glucose 169 mg/dL (65-115); Osmolality Calculated 301 mOsm/kg (285-295); Potassium 4.2 mmol/L (3.5-5.1); Sodium 142 mmol/L (136-145)
[2024-05-07 21:23] VITALS: BP 101/62; PULSE 99; RESP 18; O2SAT 93
[2024-05-07 21:29] LABS: Troponin 5 2HR 11.73 ng/L (0-15)
[2024-05-07 21:32] LABS: Troponin 5 2HR Delta -6.27 ABS# (0-10)
[2024-05-07 21:51] VITALS: BP 101/62; PULSE 99; O2SAT 99
== END 2024-05-07 21:55 | disposition home or self-care (01) ==
PROVIDERS: Emergency Provider Emergency Medicine; PCP Family Medicine
DX: R07.89 Other chest pain (principal); Z79.84 Long term (current) use of oral hypoglycemic drugs; Z79.02 Long term (current) use of antithrombotics/antiplatelets; Z79.82 Long term (current) use of aspirin; E11.9 Type 2 diabetes mellitus without complications; I10 Essential (primary) hypertension; E78.5 Hyperlipidemia, unspecified; Z87.891 Personal history of nicotine dependence
CPT/HCPCS: 71045; 80048; 84484; 85025; 93005; 99285

== ENCOUNTER 2024-05-10 08:29 | Outpatient (CLI) | payer MEDICARE, SELFPAY ==
--- NOTE | 2024-05-10 | ECG_ITS ---
[facility] Test Date: 2024-05-10 Pat Name: Tobi Webb Department: Room: Gender: Male Mandolin Repairer: Aime Albarran : 1955 Requested By: Musa Davis Order Number: [id number] Orly MD: YAZMIN LOZANO Interpretive Statements NAME OF STUDY: LEXISCAN SESTAMIBI STRESS TEST INDICATION: [CP, SOB, ] NOTE: Please note that this is the electrocardiogram portion of the Lexiscan/Sestamibi stress test. The perfusion scan will be documented separately. DATA: Baseline heart rate was 78 beats per minute. Baseline blood pressure was 144/84 millimeters of mercury. Target heart rate was 120. Maximum heart rate achieved was 96. which was 64% of the predicted target heart rate. Maximum blood pressure was 148/84 millimeters of mercury. The reason for ending the test was completion of the protocol. The patient did not experience any symptoms. ELECTROCARDIOGRAM: BASELINE: Sinus rhythm. Normal axis. Otherwise, no ST-T changes suggestive of ischemia noted. No arrhythmia noted. EXERCISE: After Lexiscan injection, no ST-T changes suggestive of ischemic noted. No arrhythmia noted. CONCLUSION: Please note due to baseline abnormality of the EKG specificity and sensitivity of the EKG portion of LexiScan MIBI stress test will be low 1. EKG not suggestive of ischemia 2. Lexiscan injection unremarkable. 3. Perfusion scan will be documented separately. Electronically Signed On 05-11-2024 19:28:43 CDT by YAZMIN LOZANO [id number]
[2024-05-10 08:55] VITALS: BMI 25.7
--- NOTE | 2024-05-10 08:57 | NMCV_ITS ---
NM gem perf SPECT r/s* [id number] Tobi Webb Age: 69 Gender: M : 1955 Exam Date: 05/10/2024 08:57 Ordering Phys: Musa Davis M.D ([email or web address]) Technologist: CHRIS Becerra Exam Location: [facility] Indications: SOB/CP STRESS TEST [facility] IMAGE PROTOCOL Rest/Stress 1 Lexiscan Day Radiopharmaceutical Dose (mCi) Administration Site Administered by Rest: Tc-99m 11 IV CHRIS Luna Sestamibi Stress:Tc-99m 31.3 IV CHRIS Luna Sestamibi Rest: 10-May-2024 60 Discovery 630 Stress: 10-May-2024 30 Discovery 630 0.4mg Lexiscan. Images obtained in supine and prone position. SPECT RESULTS Technical Quality: Excellent Raw Data Analysis: Normal Image Corrections: No attenuation or motion correction applied Summed Stress Score: 9 Summed Rest Score: 6 Summed Difference Score: 3 PERFUSION FINDINGS There is a large sized area of partially reversible perfusion defect seen in inferolateral wall. This is consistent with large sized prior infarct with medium sized area of cleo-infarct ischemia seen in left circumflex artery territory. There is a medium sized area of reversible perfusion defect seen in the inferior wall. This is consistent with medium sized area of ischemia in RCA territory. FUNCTIONAL RESULTS (calculated via Gated SPECT) Stress Image LV EF (%): 61 Stress EDV (mL):82 TID: 0.93 Stress ESV (mL):32 FUNCTIONAL FINDINGS: There is normal left ventricular systolic function. IMPRESSIONS 1. Abnormal myocardial perfusion imaging with medium to large sized area of prior infarct with medium sized area of cleo-infarct ischemia seen in left circumflex artery territory. 2. Medium sized area of ischemia seen in RCA territory. 3. LV systolic function is normal. Musa Davis MD (Electronically Signed) Final Date: 11 May 2024 07:35 S
[2024-05-10] MEDS: regadenoson 0.4 Mg/5 ml Syringe IVP (10:33)
[2024-05-10 10:37] VITALS: BP 124/76; PULSE 83
== END 2024-05-10 08:30 | disposition home or self-care (01) ==
LOC: CDL 08:30
PROVIDERS: PCP Family Medicine; Visit Provider Internal Medicine
DX: R07.9 Chest pain, unspecified (principal); R06.02 Shortness of breath; R94.39 Abnormal result of other cardiovascular function study
CPT/HCPCS: 36415; 78452; 93017; 96374; A9500; J2785

== ENCOUNTER 2024-05-12 11:07 | Observation (INO) | payer MEDICARE, SELFPAY ==
[2024-05-12] VITALS (40 sets, daily range): BP systolic 67–133; BP diastolic 43–83; PULSE 59–95; RESP 6–22; TEMP 36.3–36.4; O2SAT 93–99; BMI 26.3
--- NOTE | 2024-05-12 07:30 | XACV_ITS ---
Exam Room: 8982169338 Ht: 180 cm Wt: 86 kg BSA: 2.08 m2 Gender: Male : 1955 Any Known Allergies: Other Exam Priority: Routine Procedure(s): Procedure Description: Diagnostic procedure Procedure Description: PCI procedure Procedure Description: PTCA Procedure Description: Miscellaneous Procedure Description: ACT Procedure Description: Coronary Angiography Diagnostic Cath Status: Elective Diagnostic Findings * INDICATION: Worsening angina/ abnormal stress test. * Distal left Main: significant 50% stenosis, HARSHA: 3 flow. * Mid to distal LAD has diffuse disease. Has competitive flow seen from MC. LAD gives rise to 2 medium to large sized diagonal arteries. First diagonal artery has mid vessel 80 to 90% stenosis. Second diagonal artery is free of significant disease. * Distal Right Coronary Artery to Distal Right Coronary Artery into PDA: critical 95% calcified stenosis, HARSHA: 2 flow. PLV is occluded. PDA has severe 80% stenosis. * Proximal Circumflex: chronic total occlusion, HARSHA: 3 flow. * Bypass grafts: MC to LAD is patent. After touchdown LAD has diffuse disease. SVG to OM is patent. No graft to PDA is seen. * Coronary angiography shows right dominance. PCI Status: Elective PCI Indication: Other Interventional Findings * Distal Right Coronary Artery to Distal Right Coronary Artery: 95% stenosis treated with a AB TREK 2.50X12 RX BALLOON, Shockwave 2.5x12, and AB MINI TREK 2.00X8 RX BALLOON. * Procedure detail: We engaged RCA with JR4 guide catheter. IV heparin was administered to maintain anticoagulation. 0.014 run-through guidewire was used to cross the stenosis and was put in distal vessel. We predilated it with 2.5 x 12 mm semicompliant balloon. We then attempted to perform shockwave lithotripsy with 2.5x12 mm IVL balloon. We performed lithotripsy in proximal part of the stenosis however balloon could not be completely crossed. In attempts to advance the balloon, wire position was lost. We then switched the guide to AL 0.75. However there was balloon induced dissection that was flow limiting in the PDA. We tried to cross the occluded segment of PDA with different wires but wires were going into dissection plane. Patient stayed hemodynamically stable with no significant chest pain or EKG changes. Patient will be transferred to ICU for further monitoring. . Conclusions 1. Severe multivessel lumbee coronary artery disease. Patent MC to LAD and SVG to OM. 2. Unsuccessful attempt at revascularization of the distal RCA/PDA. Balloon angioplasty induced flow limited dissection of the PDA. 3. Patient has prior CABG. 4. Distal Right Coronary Artery to Distal Right Coronary Artery was treated with a Balloon, Balloon, and Balloon. Recommendations * We will transfer patient to ICU. Flow limiting dissection of PDA. If develops chest pain, we will start nitro gtt. At this time he is hemodynamically stable. * Obtain echocardiogram. * Future attempts at revascularization depend on patient's clinical progress. Spoke to CT surgery team at [facility], medical therapy recommended. Interventional RX Recommendation: PCI w/o planned CABG Diagnostic RX Recommendation: PCI w/o planned CABG Anticoagulation: Heparin Pressures Phase:Rest AO : 103 / 77 ( 87 ) @ 9:32:00 AM 102 / 78 ( 92 ) @ 9:34:00 AM 108 / 81 ( 95 ) @ 9:41:00 AM 114 / 76 ( 94 ) @ 9:53:00 AM 127 / 80 ( 102 ) @ 9:56:00 AM 141 / 87 ( 112 ) @ 10:14:00 AM 118 / 78 ( 96 ) @ 10:18:00 AM 121 / 77 ( 96 ) @ 10:19:00 AM 105 / 69 ( 84 ) @ 10:26:00 AM 123 / 80 ( 100 ) @ 10:31:00 AM 98 / 65 ( 79 ) @ 10:49:00 AM 102 / 71 ( 86 ) @ 10:51:00 AM 113 / 68 ( 86 ) @ 10:54:00 AM Clinical Evaluation EBL: 5mL-10mL Procedural Details Pre-Procedure Time Out. Identified patient by full name and date of as verbalized by the patient/guarantor. Does the consent match the physician's order: Yes. Accurate & Complete Informed Consent: Yes. Inpatient/Outpatient History & Physical on Chart: Yes. If H&P is completed, is and addenduem needed: No; If yes, is the addendum complete: N/A. Visualize and Verify Site with Patient/Guarantor: N/A. Relevant Radiology Images available: Yes. Pre-op teaching completed and patient verbalized understanding. The risks, benefits, and alternatives of sedation and/or procedure were discussed by physician. The patient agrees to continue. Procedure started. Physician arrived. Lidocaine 1% infiltrated to the right groin. Arterial access obtained with micropuncture set. Wire unable to advance. Wire and needle removed. Arterial access obtained with micropuncture set. A 5 venezuelan JL4 catheter in over wire. Multiple views taken of left coronary artery. Catheter removed over the standard wire. A 5 venezuelan JR4 catheter in over wire. Multiple views taken of right coronary artery. MC to LAD visualized. Catheter removed over the standard wire. A 5 venezuelan AL1 catheter in over wire. SVG's to OM visualized and patent. Catheter removed over the standard wire. 6 venezuelan JR 4 guide catheter was inserted over the wire. Runthrough guidewire was advanced through the guide catheter to lesion in the distal RCA. Inflation number : 1 A AB TREK 2.50X12 RX BALLOON was prepped and advanced across the Dist RCA , then inflated to 8 ARELI for 0:11 seconds. Inflation number: 2 The AB TREK 2.50X12 RX BALLOON was reinflated across the Dist RCA, to 10 ARELI for 0:11 seconds. Inflation number: 3 The AB TREK 2.50X12 RX BALLOON was reinflated across the Dist RCA, to 12 ARELI for 0:20 seconds. Balloon out. Results checked. Inflation number : 4 A Shockwave 2.5x12 was prepped and advanced across the Dist RCA , then inflated to 4 ARELI for 0:20 seconds. Inflation number: 5 The Shockwave 2.5x12 was reinflated across the Dist RCA, to 4 ARELI for 0:19 seconds. Inflation number: 6 The Shockwave 2.5x12 was reinflated across the Dist RCA, to 4 ARELI for 0:16 seconds. Balloon out. Results checked. [id number] NC Balloon inserted to lesion in the distal RCA. Balloon and wire out. Guide catheter out. ACT drawn. Results 274 seconds. Therapeutic limits - pre-heparin administration 90-150 seconds and monitoring heparin during a vascular procedure >250 seconds. 6 venezuelan AL 0.75 guide catheter was inserted over the wire. Runthrough guidewire was advanced through the guide catheter to lesion in the distal RCA. GAS SYSTEM OPERATOR 50 guidewire was advanced through the guide catheter to lesion in the distal RCA. Runthrough wire out. Fielder XT guidewire was advanced through the guide catheter to lesion in the distal RCA. Fielder wire out. Inflation number : 7 A AB MINI TREK 2.00X8 RX BALLOON was prepped and advanced across the Dist RCA , then inflated to 6 ARELI for 0:12 seconds. Inflation number: 8 The AB MINI TREK 2.00X8 RX BALLOON was reinflated across the Dist RCA, to 4 ARELI for 0:11 seconds. Balloon out. Runthrough guidewire was advanced through the guide catheter to lesion in the distal RCA. Supervisor Particleboard wire removed. Runthrough wire removed. Results checked. ACT drawn. Results out of range high seconds. Therapeutic limits - pre-heparin administration 90-150 seconds and monitoring heparin during a vascular procedure >250 seconds. Guide catheter out. A Right femoral angiogram was performed to determine safe placement of closure device. Physician scrubbed out. A Suture was successful obtaining hemostatsis at the Right Femoral artery insertion site. Arterial sheath flushed and connected to tranducer and pressure bag with heparinized saline. Post Procedure: Pulses reassessed and unchanged. PERRLA. Strong, equal hand getterer bilaterally. No VTE prophylaxis required. Medication's Wasted: Lidocaine 1% = 10 mL. Total IV fluids: 200 mL. Post-op diagnosis: CAD. ACT drawn. Results 254 seconds. Therapeutic limits - pre-heparin administration 90-150 seconds and monitoring heparin during a vascular procedure >250 seconds. Complications: None. Estimated blood loss: 5mL-10mL. Responsiveness - Normal response to verbal stimuli; alert and oriented, PERRLA. Airway - Unaffected, no intervention required; spontaneous ventilation. Circulation: W/N/L, pulses unchanged. Nausea/Vomiting: No. Procedure completed. Vital chart was stopped. Patient transferred by bed to CPRU. Access Site Site: Right Femoral artery Sheath Size: 6 Fr Hemostasis Method: Suture Hemostasis Success: Successful Procedure Medications Start: 8:21 AM Stop: 8:21 AM Medication: Versed Amount: 1 mg Route: I.V. Start: 8:21 AM Stop: 8:21 AM Medication: Fentanyl Amount: 50 mcg Route: I.V. Start: 8:28 AM Stop: 8:28 AM Medication: Versed Amount: 1 mg Route: I.V. Start: 8:48 AM Stop: 8:48 AM Medication: Heparin Amount: 8000 units Route: I.V. Start: 8:54 AM Stop: 8:54 AM Medication: Fentanyl Amount: 25 mcg Route: I.V. Start: 9:18 AM Stop: 9:18 AM Medication: Fentanyl Amount: 25 mcg Route: I.V. Start: 9:18 AM Stop: 9:18 AM Medication: Versed Amount: 1 mg Route: I.V. Start: 9:23 AM Stop: 9:23 AM Medication: Heparin Amount: 1000 units Route: I.V. Start: 9:39 AM Stop: 9:39 AM Medication: Versed Amount: 1 mg Route: I.V. Start: 9:44 AM Stop: 9:44 AM Medication: 0.9% Saline Amount: 250 ml Route: I.V. bolus I, the attending physician, have reviewed and verified all procedure medications. Yes, all medications given per verbal order History/Risk Factors Hypertension: Yes Dyslipidemia: Yes Peripheral Arterial Disease (PAD): No Myocardial Infarction (SC): No Obesity: No Renal Disease: No Tobacco Use: Former Prior Interventions PCI: No CABG: Yes Valve Surgery: No Report Signatures Finalized by Musa Davis MD on 05/28/2024 12:11 PM
[2024-05-12] MEDS: diphenhydrAMINE 50 mg Capsule PO (07:50)
--- NOTE | 2024-05-12 08:16 | W.PM.OPSUD ---
Surgery/Procedure H&P Update DATE OF PROCEDURE: May 12, 2024 DATE H&P PERFORMED: 04/27/24 H&P UPDATE INFORMATION: I have reviewed H&P completed within last 30 days, I have examined patient prior to procedure and Changes to prior documentation as noted here CHANGES TO PREVIOUS DOCUMENTATION: Patient had been having chest discomfort epsiodes. Had stress test done showing ischemia in RCA/ LCx territory. Plan for coronary angiogram with possible PCI PREOP DIAGNOSIS: Worsening angina/ abnormal stress test PRIMARY INDICATION FOR PROCEDURE: Worsening angina/abnormal stress test PLANNED PROCEDURE: Operation Date: 05/12/24 08:30 Proposed Procedures p Cardiac Catheterization(Left) - Musa Davis M.D Possible percutaneous coronary intervention PATIENT REASSESSED PRIOR TO SEDATION, WITH NO CHANGE NOTED: Yes PHYSICAL EXAM: alert, oriented x 3, clear to auscultation bilaterally and regular rate & rhythm AIRWAY EVAL/ANESTHESIA PLAN: normal airway, ASA III, Local Anesthesia, Risks, benefits & alternatives of sedation and/or procedure discussed and Patient agrees to continue as planned ADDITIONAL INFORMATION: Moderate sedation
[2024-05-12] MEDS: nitroglycerin drip 50 MG/250 ML PREMIX IV ×2 (10:15→15:42)
--- NOTE | 2024-05-12 10:15 | PC.NURSE ---
Nitro gtt started at 10mcg/min. Second IV started #18ga to Left AC X 1 attempt.
[2024-05-12] MEDS: morphine 4 mg/mL SDV 1 mL 2 MG IVP (10:20)
--- NOTE | 2024-05-12 10:20 | PC.NURSE ---
2mg IVP Morphine given as ordered for CP 03/08.
--- NOTE | 2024-05-12 10:25 | PC.NURSE ---
Dr. Davis at bedside speaking to patients . Nurse reported BP 87/56 HR 67. Received orders to start 250ml IV Bolus. 250ml IV bolus started at this time. Nitro gtt stopped at this time.
[2024-05-12] MEDS: norepinephrine 4 MG/250 ML BAG 7.5 MG IV (10:30)
--- NOTE | 2024-05-12 10:30 | PC.NURSE ---
BP 67/43 , bolus still infusing. Dr. Davis notified and received verbal orders to start IV levophed gtt. Levophed gtt was started at this time.
--- NOTE | 2024-05-12 10:45 | PC.NURSE ---
Pt transferred to ICU 1 by bed. Report called to KARY Stallworth. Pt BP 119/72 HR 65, Levophed titrated to 1mcg/min. NS running at 100ml/hr. Nitro gtt remains paused. Pt still complains of chest pain 5/10 does report some relief. Right groin sheath is asymptomatic. No signs of bleeding or hematoma. at bedside.
--- NOTE | 2024-05-12 10:51 | XR_ITS ---
WS: [id number] XR chest 1V portable [id number] REASON FOR EXAM: Chest pain FINDINGS: Previous internal mammary artery/coronary artery bypass surgery. Moderate tortuosity of the thoracic aorta. Mild cardiomegaly. Compared to the examination of 05/07/2024 there is atelectasis in the left lower lung. No other interva l changes noted. XR/XR chest 1V portable [id number] IMPRESSION: Previous coronary artery bypass surgery. Mild cardiomegaly. Atelectasis in the left lower lung. No other acute abnormality.
--- NOTE | 2024-05-12 10:55 | USCV_ITS ---
Tobi Webb Age: 69 Gender: M : 1955 Exam Date: 05/12/2024 11:27 Ordering Phys: Musa Davis M.D ([email or web address]) Technologist: [place] [facility] [place]ication: post cath BP: 136 / 84 HR: 70 Rhythm: Sinus Technical Quality: Adequate MEASUREMENTS (Male / Female) Normal Values 2D ECHO LV Diastolic Diameter PLAX 3.7 cm 4.2 - 5.9 / 3.9 - 5.3 cm IVS Diastolic Thickness 1.2 cm 0.6 - 1.0 / 0.6 - 0.9 cm IVS Systolic Thickness 1.5 cm LVPW Diastolic Thickness 1.2 cm 0.6 - 1.0 / 0.6 - 0.9 cm LVPW Systolic Thickness 1.7 cm LVOT Diameter 2.0 cm LV Ejection Fraction 2D Teich 58.2 % LV Ejection Fraction MOD 4C 69.4 % LV Ejection Fraction MOD 2C 56.5 % LV Ejection Fraction 2C AL 56.8 % LA Diameter 4.5 cm RA Systolic Volume 4C AL 51.7 ml RA Systolic Volume 4C MOD 48.9 ml Aorta at Sinotubular Diameter 3.4 cm IVC Diameter 2.4 cm M-MODE LA Ao Ratio MM 1.2 MV E Point Septal Separation 1.7 cm AV Cusp Separation MM 2.1 cm DOPPLER AV Peak Velocity 130.0 cm/s LVOT Peak Velocity 63.0 cm/s AV Area Cont Eq vti 1.8 cm squared AV Area Cont Eq pk 1.6 cm squared MV Peak Velocity 79.0 cm/s MV Area PHT 3.3 cm squared Mitral E to A Ratio 0.8 TV Peak Velocity 154.0 cm/s TR Peak Velocity 175.0 cm/s TR Peak Gradient 12.3 mmHg TV Peak E Velocity 88.0 cm/s Right Atrial Pressure 3.0 mmHg Pulmonary Artery Systolic Pressu 15.3 mmHg PV Peak Velocity 82.0 cm/s FINDINGS Left Ventricle Left ventricle is normal in size. LV systolic function is normal with EF of 50 to 55%. Mild hypokinesis of inferolateral wall. Grade 1 diastolic dysfunction Right Ventricle Normal in size and function Right Atrium Normal in size Left Atrium Normal in size Mitral Valve Structurally normal mitral valve. Trace mitral regurgitation. Aortic Valve Structurally normal aortic valve. No significant stenosis or regurgitation. Tricuspid Valve Insufficient TR jet to calculate RVSP Pulmonic Valve Trace pulmonic regurgitation. Pericardium Normal Aorta Grossly normal IVC Appears to be normal. CONCLUSIONS LV systolic function is normal with EF of 50-55%. Grade 1 diastolic dysfunction Trace mitral regurgitation Trace pulmonic regurgitation Compared to prior echocardiogram from 2022, no significant changes are seen. Musa Davis MD (Electronically Signed) Final Date: 13 May 2024 12:05 S
--- NOTE | 2024-05-12 11:12 | PC.NURSE ---
Addendum entered by Maddie Hernandez RN 05/12/24 11:21: Note entered at incorrect time. Correction is 1005. Original Note: Patient arrived to CPRU [address] Davis at bedside. Pt reports CP 03/08. Breathing even and non-labored on room air. Pt placed on bedside monitoring coordinator. V/s reviewed. Right groin has sutured in 6fr sheath to pressure bag. Site asymptomatic. No signs of bleeding or hematoma. Verbal orders received to start Nitro gtt and titrate as BP will tolerate and orders received to give 2mg IVP Morphine X 1. at bedside.
[2024-05-12 12:58] LABS: Basophils # 0.1 10^3/uL (0.0-0.1); Basophils % 1.1 %; Eosinophils # 0.2 10^3/uL (0.0-0.8); Eosinophils % 2.5 %; Hematocrit 45.8 % (37-53); Lymphocytes # 1.2 10^3/uL (0.8-4.8); Lymphocytes % 13.3 %; Mean Corpuscular HGB Conc 32.1 g/dL (30-55); Mean Corpuscular Hemoglobin 31.2 pg (27-33); Mean Corpuscular Volume 97.2 fl (82-101); Mean Platelet Volume 9.3 fL (7.4-10.4); Monocytes # 0.5 10^3/uL (0.2-0.9); Neutrophils # 6.95 10^3/uL (1.8-7.7); Neutrophils % 77.8 %; Nucleated Red Blood Cells % 0 %; Platelet Count 259 10^3/cmm (157-399); Red Blood Count 4.71 10^6/uL (3.85-5.65); Red Cell Distribution Width 12.5 % (12.1-15.1); White Blood Count 8.94 10^3/uL (3.29-11.43)
[2024-05-12 13:16] LABS: Alanine Aminotransferase 14 U/L (0-41); Alkaline Phosphatase 72 U/L (40-130); Aspartate Amino Transferase 14 U/L (0-40); Blood Urea Nitrogen 15 mg/dL (8-23); Calcium 8.8 mg/dL (8.5-10.5); Carbon Dioxide 26 mmol/L (22-29); Chloride 106 mmol/L (98-107); Creatinine Clr Calc Pharmacy 96.5801; Globulin 2.1 g/dL (1.3-4.6); Glomerular Filtration Rate 95.6 mL/min (90-130); Glucose 182 mg/dL (65-115); Osmolality Calculated 295 mOsm/kg (285-295); Sodium 140 mmol/L (136-145); Total Bilirubin 0.4 mg/dL (0.15-1.2); Total Protein 6.1 g/dL (6.6-8.7); Troponin T (5th) Once 18 ng/L (0-15)
--- NOTE | 2024-05-12 14:34 | ECG_ITS ---
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 Measurements Intervals [place] Rate: 75 P: 35 SD: 169 QRS: 9 QRSD: 102 T: 57 QT: 375 QTc: 420 Interpretive Statements SINUS RHYTHM INCOMPLETE RIGHT BUNDLE BRANCH BLOCK [90+ ms QRS DURATION, TERMINAL R IN V1/V2, 40+ ms S IN I/aVL/V4/V5/V6] INFERIOR MYOCARDIAL INFARCTION , OF INDETERMINATE AGE [40+ ms Q WAVE AND/OR ST/T ABNORMALITY IN II/aVF] Compared to ECG 05/07/2024 19:46:06 Incomplete right bundle-branch block now present Myocardial infarct finding now present Electronically Signed On 05-12-2024 16:55:56 CDT by Tony Owusu M.D. [id number]
[2024-05-12 14:50] LABS: Partial Thromboplastin Time 28.2 SECONDS (23.9-36.7)
[2024-05-12] MEDS: fentaNYL 50 mcg/mL INJ 2mL IVP (15:09)
[2024-05-12] MEDS: sodium chloride 0.9% 1,000 ML 100 ML IV (15:45)
--- NOTE | 2024-05-12 19:00 | PC.NURSE ---
Levo drip: Upon arrival to shift, patient's levophed drip was not running. MAR updated to reflect this.
--- NOTE | 2024-05-12 19:53 | PM.MISC ---
Miscellaneous Note Purpose of Documentation: Brief procedure and event note Note: Patient presented for outpatient coronary angiogram with possible PCI. Coronary angiography showed critical distal RCA/PDA stenosis. It was calcified. No bypass graft to RCA was found. We proceeded with attempt at PCI. Balloon angioplasty was performed. As it was heavily calcified lesion, decision was made to proceed with IVL lithotripsy balloon angioplasty. Only proximal portion of the lesion could be treated with that as it would not cross the stenosis completely. In attempts to advance it further, wire position was lost. We then switched guide from RCA to AL 0.75 more support. However patient had balloon angioplasty induced coronary artery dissection. And wire could not be advanced further. Flow in PDA was minimal. Patient had visible coronary artery dissection. Multiple of wires were tried. However access to true lumen could not be obtained. He did not have significant ST-T wave changes. Minimal chest discomfort. Hemodynamically stayed stable. We decided to abort further attempts and treat medically after discussion with CT surgery team at [facility] ( Dr Rosas). He was started on nitro drip. Briefly blood pressure droppedand required low-dose Levophed. However once nitro was turned off, we were able to wean off Levophed. Nitro drip was restarted. His chest pain resolved. Staying hemodynamically stable. Troponin was obtained that was 18 (High sensitivity). Echocardiogram obtained showing normal LV systolic function with mild hypokinesis of inferolateral wall. Patient was transferred to ICU for close monitoring. Plan for discharge home in 1-2 days if stays stable. Detailed discussion with patient and family explaining the procedure, dissection and plan. They showed understanding.
[2024-05-13] VITALS (45 sets, daily range): BP systolic 107–144; BP diastolic 63–112; PULSE 68–106; RESP 9–32; TEMP 36.3–37.2; O2SAT 93–100; BMI 27.0
[2024-05-13] MEDS: sodium chloride 0.9% 1,000 ML 100 ML IV ×2 (01:23→08:33)
[2024-05-13 03:58] LABS: Anion Gap 11.9 (5-19); Blood Urea Nitrogen 13 mg/dL (8-23); Calcium 8.5 mg/dL (8.5-10.5); Carbon Dioxide 24 mmol/L (22-29); Chloride 109 mmol/L (98-107); Creatinine Clr Calc Pharmacy 96.6632; Glomerular Filtration Rate 95.6 mL/min (90-130); Glucose 126 mg/dL (65-115); Osmolality Calculated 294 mOsm/kg (285-295); Potassium 3.9 mmol/L (3.5-5.1); Sodium 141 mmol/L (136-145)
[2024-05-13] MEDS: metoprolol tartrate 25 mg Tablet PO ×2 (09:05→20:30)
[2024-05-13] MEDS: clopidogrel 75 mg Tablet PO (09:05)
[2024-05-13] MEDS: aspirin 81 mg EC Tablet PO (09:05)
--- NOTE | 2024-05-13 09:13 | P.PN_ITS ---
Subjective 2 Subjective: Patient had coronary angiogram yesterday and had dissection of distal RCA/PDA balloon angioplasty. Minimal flow. He is doing well. No chest pain. Off nitro drip. Had brief nonsustained VT overnight. Vitals/I&O/Wt Last Vital Signs Temp 98.9 F 05/13/24 08:00 Pulse 81 05/13/24 08:00 Resp 12 05/13/24 08:00 BP 120/72 05/13/24 08:00 Pulse Ox 97 05/13/24 08:00 O2 Del Method Room Air 05/13/24 08:00 05/12/24 05/13/24 05/13/24 22:59 06:59 14:59 Intake Total 410.90 / 412.60 1001.775 / 1414.375 716.667 / 716.667 Output Total 650 / 900 875 / 1775 Balance -239.10 / -487.40 126.775 / -360.625 716.667 / 716.667 Weight last 48 hrs Weight 193 lb 12.581 oz Weight 189 lb 6.033 oz Weight 189 lb Physical Exam 2 Narrative: GENERAL: Patient is alert, awake and oriented x3. [] NECK: No jugular vein distension. [] HEENT: No cyanosis. No icterus. No pallor. [] HEART: Regular S1 and S2. No murmur, rub or gallop. [] LUNGS: Clear to auscultate bilaterally. [] CENTRAL NERVOUS SYSTEM: Grossly nonfocal. [] EXTREMITIES: Lower extremities with no edema bilaterally. Data 05/12/24 12:44 05/13/24 03:14 A&P Assessment and plan (1) Worsening angina: (2) Hyperlipemia: Qualifiers: Hyperlipidemia type: unspecified Qualified Code(s): E78.5 - Hyperlipidemia, unspecified (3) HTN (hypertension): (4) Diabetes: (5) Coronary artery dissection: Plan Patient had coronary artery dissection of distal RCA/PDA post balloon angioplasty yesterday. He is doing stable. Not requiring any pressor support. No chest pain. Echo shows normal LV systolic function. He had brief nonsustained VT episodes last night. We will restart beta-clifford today and observe overnight. If stable by tomorrow, plan for discharge home. We will also initiate isosorbide mononitrate tomorrow. If no chest discomfort in future, we will continue with medical therapy otherwise can reassess for intervention. Thank you for involving us with care of this patient. We will continue to follow. Please call with questions. Attestations 2 Medical Necessity Statement*: Care expected to cross 2 midnights. Patient had coronary artery dissection post balloon angioplasty of RCA. Minimal flow. Intervention could not be performed. Plan for observation in hospital for 1 more day and if stable by tomorrow will be discharged home. Coding Level of Care Code Acute Code for Chg Fwd Diagnoses Worsening angina I20.0 Hyperlipidemia, unspecified hyperlipidemia type E78.5 Hyperlipidemia type: unspecified HTN (hypertension) I10 Diabetes E11.9 Coronary artery dissection I25.42
[2024-05-13] MEDS: fluticasone nasal spray 16gm Btl 1 SPRAY NASAL (18:22)
--- NOTE | 2024-05-13 18:29 | PC.NURSE ---
Uneventful shift, patient ambulating in room multiple times during shift, C/O stuffy nose, relieved by hot towels and flonase spray.
[2024-05-14] VITALS (14 sets, daily range): BP systolic 101–131; BP diastolic 65–77; PULSE 65–87; RESP 11–26; TEMP 36.2–36.6; O2SAT 94–98; BMI 26.9
[2024-05-14] MEDS: aspirin 81 mg EC Tablet PO (07:54)
[2024-05-14] MEDS: metoprolol tartrate 25 mg Tablet PO (07:54)
[2024-05-14] MEDS: clopidogrel 75 mg Tablet PO (07:54)
--- NOTE | 2024-05-14 08:07 | PM.DCS ---
Discharge Providers Date of Admission: 05/12/24 11:07 Date of Discharge: May 14, 2024 Attending Provider at Admission: Musa Davis M.D Attending Provider at Discharge: Musa Davis M.D Primary Care Provider: Javier Adams Diagnoses at Discharge Discharge Diagnosis (1) Worsening angina: Status: Inactive (2) Hyperlipemia: Status: Acute Qualifiers: Hyperlipidemia type: unspecified Qualified Code(s): E78.5 - Hyperlipidemia, unspecified (3) HTN (hypertension): Status: Acute (4) Diabetes: Status: Acute (5) Coronary artery dissection: Status: Inactive Reason for Visit Reason for Visit: I200 Brief History: 69-year-old man with past medical history of CAD and CABG who has been describing worsening chest discomfort symptoms. Stress test was abnormal. Plan for coronary angiogram. Hospital Course Hospital Course Patient was found to have critical, heavily calcified stenosis of distal RCA into PDA. No bypass graft to this vessel. MC to LAD and SVG to OM were patent. Medium to large sized first diagonal artery has a severe stenosis. RCA/PDA lesion was heavily calcified. After balloon angioplasty and intravascular lithotripsy with shockwave balloon, patient had flow-limiting dissection. Wire position was lost in attempts to cross the stenosis. It could not be rewired. After discussion with CT surgery at [place], medical therapy was decided. Patient was transferred to ICU. Was put on IV nitro for few hours. He stayed hemodynamically stable. Echo showed normal LV systolic function. He was discharged home in a stable condition with plans for aggressive medical therapy. Ranexa added. Physical Exam Narrative: GENERAL: Patient is alert, awake and oriented x3. [] NECK: No jugular vein distension. [] HEENT: No cyanosis. No icterus. No pallor. [] HEART: Regular S1 and S2. No murmur, rub or gallop. [] LUNGS: Clear to auscultate bilaterally. [] CENTRAL NERVOUS SYSTEM: Grossly nonfocal. [] EXTREMITIES: Lower extremities with no edema bilaterally. Discharge Data Studies Completed and Pending Completed Studies During Hospitalization Category Date Time Status XR chest 1V portable [id number] Routine Exams 05/12/24 10:51 Completed CV. echo complete* [id number] Urgent Ultrasound 05/12/24 10:55 Completed Pending at discharge Category Date Time Status [employer] request for service Routine Exams 05/12/24 07:30 Taken Radiology Impressions Chest X-Ray 05/12/24 10:51 IMPRESSION: Previous coronary artery bypass surgery. Mild cardiomegaly. Atelectasis in the left lower lung. No other acute abnormality. Laboratory Results WBC 8.94 10^3/uL (3.29-11.43) 05/12/24 12:44 RBC 4.71 10^6/uL (3.85-5.65) 05/12/24 12:44 Hgb 14.70 g/dL (11.27-16.99) 05/12/24 12:44 Hct 45.8 % (37-53) 05/12/24 12:44 MCV 97.2 fl (82-101) 05/12/24 12:44 MCH 31.2 pg (27-33) 05/12/24 12:44 MCHC 32.1 g/dL (30-55) 05/12/24 12:44 RDW 12.5 % (12.1-15.1) 05/12/24 12:44 Plt Count 259 10^3/cmm (157-399) 05/12/24 12:44 MPV 9.3 fL (7.4-10.4) 05/12/24 12:44 Neut % (Auto) 77.8 % 05/12/24 12:44 Lymph % (Auto) 13.3 % 05/12/24 12:44 [place] % (Auto) 5.0 % 05/12/24 12:44 Eos % (Auto) 2.5 % 05/12/24 12:44 Baso % (Auto) 1.1 % 05/12/24 12:44 Neut # (Auto) 6.95 10^3/uL (1.8-7.7) 05/12/24 12:44 Lymph # (Auto) 1.2 10^3/uL (0.8-4.8) 05/12/24 12:44 [place] # (Auto) 0.5 10^3/uL (0.2-0.9) 05/12/24 12:44 Eos # (Auto) 0.2 10^3/uL (0.0-0.8) 05/12/24 12:44 Baso # (Auto) 0.1 10^3/uL (0.0-0.1) 05/12/24 12:44 Nucleated RBC % (auto) 0 % 05/12/24 12:44 Nucleated RBCs # 0.0 /100WBC 05/12/24 12:44 APTT 28.2 SECONDS (23.9-36.7) 05/12/24 14:09 Sodium 141 mmol/L (136-145) 05/13/24 03:14 Potassium 3.9 mmol/L (3.5-5.1) 05/13/24 03:14 Chloride 109 mmol/L (98-107) H 05/13/24 03:14 Carbon Dioxide 24 mmol/L (22-29) 05/13/24 03:14 Anion Gap 11.9 (5-19) 05/13/24 03:14 BUN 13 mg/dL (8-23) 05/13/24 03:14 Creatinine 0.8 mg/dL (0.7-1.2) 05/13/24 03:14 GFR Calculation 95.6 mL/min (90-130) 05/13/24 03:14 Glucose 126 mg/dL (65-115) H 05/13/24 03:14 Calculated Osmolality 294 mOsm/kg (285-295) 05/13/24 03:14 Calcium 8.5 mg/dL (8.5-10.5) 05/13/24 03:14 Total Bilirubin 0.4 mg/dL (0.15-1.2) 05/12/24 12:44 AST 14 U/L (0-40) 05/12/24 12:44 ALT 14 U/L (0-41) 05/12/24 12:44 Alkaline Phosphatase 72 U/L (40-130) 05/12/24 12:44 Troponin T 5th Gen ng/L 18 ng/L (0-15) H 05/12/24 12:44 Total Protein 6.1 g/dL (6.6-8.7) L 05/12/24 12:44 Albumin 4.0 g/dL (3.5-5.2) 05/12/24 12:44 Globulin 2.1 g/dL (1.3-4.6) 05/12/24 12:44 Vitals Last Vital Signs Temp 97.9 F 05/14/24 07:51 Pulse 81 05/14/24 07:51 Resp 26 H 05/14/24 07:51 BP 121/76 05/14/24 07:51 Pulse Ox 96 05/14/24 07:51 O2 Del Method Room Air 05/14/24 07:51 Discharge Plan Discharge Patient Disposition: Home Condition: Stable Prescriptions: New ranolazine 500 mg tablet extended release 12 hr 500 mg PO BID Qty: 180 3RF Continued acetaminophen 500 mg capsule 500 mg PO Q6H PRN (Reason: Shortness Of Breath) tamsulosin [Flomax] 0.4 mg capsule 0.4 mg PO DAILY nitroglycerin 0.4 mg tablet, sublingual 0.4 mg sublingual Q5M PRN (Reason: chest pain) Qty: 30 3RF Rx Instructions: do not exceed 3 doses per episode clopidogrel [Plavix] 75 mg tablet 75 mg PO DAILY fluticasone propionate 50 mcg/actuation spray,suspension 2 spray intranasal DAILY Rx Instructions: administer into each nostril loratadine [Claritin] 10 mg tablet 10 mg PO DAILY clobetasol 0.05 % cream 1 applic topical DAILY aspirin [Adult Low Dose Aspirin] 81 mg tablet,delayed release (DR/EC) 81 mg PO DAILY Qty: 90 3RF gabapentin 100 mg capsule 200 mg PO BEDTIME albuterol 90 mcg/actuation aerosol 1 mcg inhalation DAILY metoprolol tartrate 25 mg tablet 37.5 mg PO BID Qty: 135 3RF topiramate 50 mg tablet See Rx Instructions .ROUTE .COMPLEX Qty: 60 5RF Dose Instruction: TAKE 1 TABLET BY MOUTH TWICE DAILY NEEDED FOR PAIN Rx Instructions: TAKE 1 TABLET BY MOUTH TWICE DAILY NEEDED FOR PAIN Repatha SureClick 140 mg/mL pen injector See Rx Instructions .ROUTE .COMPLEX Qty: 2 5RF Dose Instruction: Inject 140mg subcutaneously EVERY TWO WEEKS Rx Instructions: Inject 140mg subcutaneously EVERY TWO WEEKS Held metformin 1,000 mg tablet 1,000 mg PO BID Hold Instructions: Resume on 05/15/24. Discharge Orders: Discharge Order (Routine); Ordered 05/14/24 Ordered By: Musa Davis Referrals: Musa Davis M.D [Physician] - 3 weeks Lety Marie FNP [Nurse Practitioner] - 4-7 days Discharge Diet: Cardiac and Diabetic Discharge Activity: Increase activity as tolerated Patient Instructions: Ranolazine (By mouth), Opioid Safety, Post Angiogram Home Care Instructions Activity Restrictions/Additional Instructions: No heavy lifting (more than 10 pounds for 7 days). No driving till tomorrow morning. Discharge Attestations Time Spent in Discharge Care*: less than 30 min Quality Metrics Clinical Quality Measures [ No reported AMI, CVA or VTE this stay] Coding Level of Care Code Acute Code for Chg Fwd Diagnoses Worsening angina I20.0 Hyperlipidemia, unspecified hyperlipidemia type E78.5 Hyperlipidemia type: unspecified HTN (hypertension) I10 Diabetes E11.9 Coronary artery dissection I25.42
--- NOTE | 2024-05-14 09:25 | PC.NURSE ---
0924: Extensive education given to patient and at bedside regarding after care of post cath, diet, follow up appointments, new and continuing medications. IV access removed. Patient and have no questions at the time of discharge. See documented vitals. Patient brought by wheelchair on room air to personal vehicle.
== END 2024-05-14 10:08 | disposition home or self-care (01) ==
LOC: ICU 11:07 → CCL 05-13 08:44 → ICU 05-13 09:16
PROVIDERS: Admitting Provider Internal Medicine; PCP Family Medicine; Visit Provider Internal Medicine
DX: I25.110 Atherosclerotic heart disease of native coronary artery with unstable angina pectoris (principal); Z79.01 Long term (current) use of anticoagulants; R78.5 Finding of other psychotropic drug in blood; I10 Essential (primary) hypertension; E11.9 Type 2 diabetes mellitus without complications; I25.42 Coronary artery dissection; E78.5 Hyperlipidemia, unspecified; Z86.73 Personal history of transient ischemic attack (TIA), and cerebral infarction without residual deficits; Z87.891 Personal history of nicotine dependence
CPT/HCPCS: 36415; 71045; 80048; 80053; 84484; 85025; 85347; 85730; 92920; 93005; 93306; 93455; 96374; 96375; 96376; 99152; 99153; C1725; C1769; C1887; C1894; G0378; J1644; J2250; J2270; J3010; J3490; J7030; Q0163; Q9967

== ENCOUNTER → 2024-05-29 12:51 | Outpatient (BNVA) | payer MEDICARE, SELFPAY | PROVIDERS: PCP Family Medicine; Visit Provider Nurse Practitioner Family | DX: I25.10 Atherosclerotic heart disease of native coronary artery without angina pectoris (principal); Z87.891 Personal history of nicotine dependence | CPT/HCPCS: 99214 ==

== ENCOUNTER → 2024-06-13 12:24 | Outpatient (BNVA) | payer MEDICARE, SELFPAY | PROVIDERS: PCP Family Medicine; Visit Provider Internal Medicine | DX: I25.10 Atherosclerotic heart disease of native coronary artery without angina pectoris (principal); E78.5 Hyperlipidemia, unspecified; I10 Essential (primary) hypertension; E11.9 Type 2 diabetes mellitus without complications; Z79.84 Long term (current) use of oral hypoglycemic drugs; Z78.9 Other specified health status; Z87.891 Personal history of nicotine dependence; Z86.73 Personal history of transient ischemic attack (TIA), and cerebral infarction without residual deficits | CPT/HCPCS: 99214 ==

== ENCOUNTER → 2024-09-22 09:00 | Outpatient (BNVA) | payer MEDICARE, SELFPAY | PROVIDERS: PCP Family Medicine; Visit Provider Internal Medicine | DX: I25.10 Atherosclerotic heart disease of native coronary artery without angina pectoris (principal); E78.5 Hyperlipidemia, unspecified; I10 Essential (primary) hypertension; E11.9 Type 2 diabetes mellitus without complications; Z78.9 Other specified health status; Z86.73 Personal history of transient ischemic attack (TIA), and cerebral infarction without residual deficits; Z87.891 Personal history of nicotine dependence; Z79.84 Long term (current) use of oral hypoglycemic drugs | CPT/HCPCS: 99214 ==

== ENCOUNTER → 2024-12-06 14:23 | Outpatient (BNVA) | payer MEDICARE, SELFPAY | PROVIDERS: PCP Family Medicine; Visit Provider Internal Medicine | DX: I25.10 Atherosclerotic heart disease of native coronary artery without angina pectoris (principal); I10 Essential (primary) hypertension; E78.5 Hyperlipidemia, unspecified; E11.8 Type 2 diabetes mellitus with unspecified complications; Z79.84 Long term (current) use of oral hypoglycemic drugs; Z95.5 Presence of coronary angioplasty implant and graft; Z86.73 Personal history of transient ischemic attack (TIA), and cerebral infarction without residual deficits; Z87.891 Personal history of nicotine dependence; Z79.01 Long term (current) use of anticoagulants; Z79.82 Long term (current) use of aspirin | CPT/HCPCS: 99214 ==

== ENCOUNTER → 2025-06-13 14:22 | Outpatient (BNVA) | payer MEDICARE, SELFPAY | PROVIDERS: PCP Family Medicine; Visit Provider Internal Medicine | DX: I25.10 Atherosclerotic heart disease of native coronary artery without angina pectoris (principal); E78.5 Hyperlipidemia, unspecified; I10 Essential (primary) hypertension; E11.9 Type 2 diabetes mellitus without complications; Z78.9 Other specified health status; Z86.73 Personal history of transient ischemic attack (TIA), and cerebral infarction without residual deficits; Z87.891 Personal history of nicotine dependence; Z79.84 Long term (current) use of oral hypoglycemic drugs | CPT/HCPCS: 99214 ==